=== PATIENT | male | born 1965 | race Caucasian/White ===

== ENCOUNTER 2016-05-02 19:34 | Inpatient (IN) | payer OTHER ==
[~2016-05-02] VITALS: Ht 188 cm; Wt 86.0 kg
[~2016-05-02 19:34] MED LIST: ALBUAER2 INH; CGN5 PO; CLX20 PO; MEDLIST; RISP2TAB22 PO
[2016-05-02] MEDS ORDERED: LEVALBUTEROL 1.25MG/0.5ML NEB INH STA (19:51)
[2016-05-02] MEDS ORDERED: IPRATROPIUM BROMIDE NEB SOLN 0.02% 2.5 ML VIAL INH STA (19:51)
[2016-05-02] MEDS ORDERED: METHYLPREDNISOLONE 125 MG VIAL IV STA (19:51)
[2016-05-02] MEDS ORDERED: ACETAMINOPHEN 500 MG TAB PO STA (19:51)
[2016-05-02] MEDS ORDERED: PIPERACILLIN/TAZOBACTAM 4.5 GM/100ML D5W IV STA (19:51)
[2016-05-02] MEDS ORDERED: SODIUM CHLORIDE 0.9% 1000ML 1,000 ML IV ONE (19:51)
--- NOTE | 2016-05-02 20:05 | EMERGENCY ROOM VISIT NOTE ---
History Report prepared by Gloria: Arlet Godwin Under the Supervision of: Dr. Joe Anderson M.D. First contact with patient: 19:45 Chief Complaint: SHORTNESS OF BREATH Stated Complaint: SOB History of Present Illness The patient is a 50 year old male who presents to the Emergency Room with complaints of constant shortness of breath beginning 3 days prior to arrival. The patient states that he did wear oxygen for 10 years and went off when he became incarcerated 2 years ago. He notes that yesterday he did start wearing oxygen again. He was 78% on room air earlier today. The patient notes that he is experiencing a cough, subjective fever, and chills. He has a history of COPD , emphysema, pneumonia, and DVT. The patient did receive 1 nebulizer treatment today. He denies heart issues or vomiting. 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 A total of 10 systems reviewed and were otherwise negative. Past Medical & Surgical Medical Problems: (1) Emphysema/COPD Family History Patient reports no known family medical history. Social History Smoking Status: Former Smoker Alcohol Use: none Housing Status: other ([facility] Occupation Status: unemployed Current/Historical Medications Scheduled Amoxicillin & Pot Clavulanate (Augmentin 875-125 mg), 1 TAB PO BID Aripiprazole (Abilify), 20 MG PO DAILY Atorvastatin (Lipitor), 20 MG PO DAILY Ciclesonide (Alvesco), 1 PUFF INH BID Diphenhydramine Hcl (Diphenhydramine Hcl), 50 MG PO BID Prednisone Tab (Prednisone), 10 MG PO UD Triamcinolone Acet (Aristocort 0.1%), 1 APPLN TOP BID Scheduled PRN Acetaminophen (Tylenol Extra Strength), 1,000 MG PO Q6H PRN for Fever Albuterol (Ventolin Hfa), 2 PUFFS INH QID PRN for Shortness of Breath Allergies Coded Allergies: No Known Allergies (Unverified , 12/17/09) Physical Exam Vital Signs Date Time Temp Pulse Resp B/P Pulse Ox O2 Delivery O2 Flow Rate FiO2 05/02/16 22:12 102 16 114/68 90 Nasal Cannula 3.0 05/02/16 21:31 37.3 106 20 121/76 93 Nasal Cannula 5.0 05/02/16 20:29 115 05/02/16 20:20 117 20 92 Nasal Cannula 5.0 05/02/16 19:50 37.4 119 20 140/85 78 Room Air 05/02/16 19:50 78 Room Air 05/02/16 19:50 78 Room Air Physical Exam GENERAL: Patient is in no acute distress. HEENT: No acute trauma, normocephalic atraumatic, mucous membranes moist, no nasal congestion, no scleral icterus. NECK: No stridor, no adenopathy, no meningismus, trachea is midline. LUNGS: Bilateral wheezing with diminished breath sounds, shortness of breath with speaking, dry cough noted, breath sounds equal. HEART: Tachycardic with regular rhythm, no murmurs. ABDOMEN: Soft, nontender, bowel sounds positive, no hernias, no peritonitis. EXTREMITIES: No cyanosis or edema, full range of motion of all the joints without pain or difficulty, no signs for acute trauma. NEUROLOGIC: Oriented x 3, no acute motor or sensory deficits, no focal weakness. SKIN: No rash, no jaundice, no diaphoresis. Medical Decision & Procedures ER Provider Diagnostic Interpretation: X ray results and stated below per my interpretation and radiologist interpretation. Other radiology results and stated below per my review and radiologist interpretation: CHEST ONE VIEW PORTABLE CLINICAL HISTORY: Sepsis COMPARISON STUDY: 12/19/2009 FINDINGS: The heart is the upper limits of normal in size. Underlying emphysema is suspected. There is mild interstitial thickening. There is no lobar consolidation. There are no pleural effusions. There is enlargement pulmonary arteries, consistent with either pulmonary arterial hypertension or shunt vascularity.[ IMPRESSION: 1. Suspected emphysema 2. Interstitial thickening 3. Enlargement of the pulmonary arteries, consistent with either pulmonary arterial hypertension or shunt vascularity Electronically signed by: Miguel Arthur M.D. 05/02/2016 8:22 PM Dictated Date/Time: 05/02/2016 8:[address] ANGIOGRAM OF THE CHEST CLINICAL HISTORY: Atypical chest pain. Sepsis. Suspected pulmonary embolism. COMPARISON STUDY: 12/16/2009 TECHNIQUE: Following the IV administration of 116 mL of Optiray-320, CT angiogram of the thorax was performed from the thoracic inlet to the lung bases utilizing the pulmonary embolus protocol. Images are reviewed in the axial, sagittal, and coronal planes. IV contrast was administered without complication. MIP imaging was performed. CT DOSE: 425.16 mGy.cm FINDINGS: There are mildly enlarged right paratracheal, subcarinal, and hilar lymph nodes, similar to the prior examination. There was no evidence of thoracic aortic dilatation. There is mild enlargement of the pulmonary arteries. This remains unchanged the prior study. A shunt cannot be excluded. There are no pulmonary artery filling defects to indicate acute pulmonary embolism. The examination is limited due to respiratory motion artifact. No pleural effusions are visualized. The examination is limited due to respiratory motion artifact. There is bibasal atelectasis. There is pulmonary emphysema. There is a 7 mm right upper lobe pulmonary nodule as visualized in image #220/341. There is an irregular 8 mm opacity as visualized in image #236/341. There are scattered adjacent tree-in-bud opacities. An inflammatory etiology is favored. There is associated right upper lobe bronchial wall thickening. A short-term follow-up study in 3 months is recommended. There are old thoracic vertebral body compression deformities. IMPRESSION: 1. Technically limited study. No central emboli identified 2. Emphysema 3. Mediastinal and hilar lymphadenopathy, similar to December 2009 4. Bronchial wall thickening and scattered right upper lobe nodules, likely inflammatory. A follow-up study in 3 months time is recommended 5. Enlarged pulmonary arteries. A shunt cannot be excluded. Electronically signed by: Miguel Arthur M.D. 05/02/2016 10:09 PM Dictated Date/Time: 05/02/2016 10:00 PM Laboratory Results 05/02/16 19:51 Red Blood Count 5.23, Mean Corpuscular Volume 83.6, Mean Corpuscular Hemoglobin 28.3, Mean Corpuscular Hemoglobin Concent 33.9, Mean Platelet Volume 10.4, Neutrophils (%) (Auto) 87.8, Lymphocytes (%) (Auto) 4.0, Monocytes (%) (Auto) 7.7, Eosinophils (%) (Auto) 0.0, Basophils (%) (Auto) 0.1, Neutrophils # (Auto) 6.74, Lymphocytes # (Auto) 0.31, Monocytes # (Auto) 0.59, Eosinophils # (Auto) 0.00, Basophils # (Auto) 0.01 05/02/16 19:51 Test 05/02/16 19:51 05/02/16 19:53 05/02/16 21:24 White Blood Count 7.68 K/uL (4.8-10.8) Red Blood Count 5.23 M/uL (4.7-6.1) Hemoglobin 14.8 g/dL (14.0-18.0) Hematocrit 43.7 % (42-52) Mean Corpuscular Volume 83.6 fL (80-100) Mean Corpuscular Hemoglobin 28.3 pg (25-34) Mean Corpuscular Hemoglobin Concent 33.9 g/dl (32-36) Platelet Count 141 K/uL (130-400) Mean Platelet Volume 10.4 fL (7.4-10.4) Neutrophils (%) (Auto) 87.8 % Lymphocytes (%) (Auto) 4.0 % Monocytes (%) (Auto) 7.7 % Eosinophils (%) (Auto) 0.0 % Basophils (%) (Auto) 0.1 % Neutrophils # (Auto) 6.74 K/uL (1.4-6.5) Lymphocytes # (Auto) 0.31 K/uL (1.2-3.4) Monocytes # (Auto) 0.59 K/uL (0.11-0.59) Eosinophils # (Auto) 0.00 K/uL (0-0.5) Basophils # (Auto) 0.01 K/uL (0-0.2) RDW Standard Deviation 41.3 fL (36.4-46.3) RDW Coefficient of Variation 13.6 % (11.5-14.5) Immature Granulocyte % (Auto) 0.4 % Immature Granulocyte # (Auto) 0.03 K/uL (0.00-0.02) Prothrombin Time 10.7 SECONDS (9.0-12.0) Prothromb Time International Ratio 1.0 (0.9-1.1) Activated Partial Thromboplast Time 30.0 SECONDS (21.0-31.0) Partial Thromboplastin Ratio 1.2 Anion Gap 9.0 mmol/L (3-11) Est Creatinine Clear Calc Drug Dose 186.9 ml/min Estimated GFR () 140.8 Estimated GFR (Non- 121.5 BUN/Creatinine Ratio 20.2 (10-20) Calcium Level 8.8 mg/dl (8.5-10.1) Total Bilirubin 0.4 mg/dl (0.2-1) Aspartate Amino Transf (AST/SGOT) 27 U/L (15-37) Alanine Aminotransferase (ALT/SGPT) 28 U/L (12-78) Alkaline Phosphatase 90 U/L (45-117) Total Protein 7.2 gm/dl (6.4-8.2) Albumin 3.4 gm/dl (3.4-5.0) Globulin 3.8 gm/dl (2.5-4.0) Albumin/Globulin Ratio 0.9 (0.9-2) Bedside Lactic Acid Venous 0.62 mmol/L (0.90-1.70) Laboratory results reviewed by me. Medications Administered Medications (Trade) Dose Ordered Sig/Aron Route Start Time Stop Time Status Last Admin Dose Admin Sodium Chloride (Nss 1000ml) 1,000 ml @ 999 mls/hr Q1H1M ONCE IV 05/02/16 19:51 05/02/16 20:51 DC 05/02/16 19:51 999 MLS/HR Piperacillin Sod/ Tazobactam Sod (Zosyn Iv) 4.5 gm ONE STAT IV 05/02/16 19:51 05/02/16 19:55 DC 05/02/16 20:58 4.5 GM Levalbuterol (Xopenex 1.25MG/ 0.5ML Neb) 1.25 mg NOW STAT INH 05/02/16 19:51 05/02/16 19:55 DC 05/02/16 20:20 1.25 MG Ipratropium [place] (Atrovent 0.02% 0.5MG/2.5ML Neb) 0.5 mg NOW STAT INH 05/02/16 19:51 05/02/16 19:55 DC 05/02/16 20:20 0.5 MG Methylprednisolone Sodium Succinate (Solu-Medrol IV) 60 mg NOW STAT IV 05/02/16 19:51 05/02/16 19:55 DC 05/02/16 20:57 60 MG Acetaminophen (Tylenol Tab) 1,000 mg NOW STAT PO 05/02/16 19:51 05/02/16 19:55 DC 05/02/16 20:57 1,000 MG ECG Indication: SOB/dyspnea Rate (beats per minute): 132 Rhythm: sinus tachycardia Findings: no acute ischemic change, no ectopy, other (significant artifact present, no obvious acute ischemia) ED Course 1945: The patient was evaluated in room B7. A complete history and physical exam was performed. 1950: Tylenol Tab 1,000 mg Po, Solu-Medrol IV 60 mg IV, Atrovent 0.02% 0.5 MG/ 2.5 ML Neb 0.5 mg INH, Xopenex 1.25 mg/ 0.5 ml Neb 1.25 mg INH, Zosyn Iv 4.5 gm IV, Sodium Chloride 1,000 ml @ 999 mls/hr IV. 2202: Discussed the patient's case with Dr. Solares. The patient will be evaluated for further management. 2213: I spoke with the patient about the plan for hospitalization. Medical Decision The patient is a 50 year old male who presents to the ED with complaints of shortness of breath. Differential diagnoses considered include exacerbation of COPD, pneumonia, bronchitis, CHF, PE, pneumothorax, failed outpatient treatment. There is no leukocytosis or concerning anemia. No significant electrolyte abnormality, kidney failure or hepatitis. Influenza testing is still pending. Chest film shows some chronic change, no pneumonia, pneumothorax or CHF. EKG shows a sinus tachycardia, no acute ischemia. Blood cultures are pending. Lactic acid level is not elevated making severe sepsis less likely. Chest CT shows no pneumonia or PE, emphysema was seen. There was some hilar adenopathy noted on the CT. The patient received a Xopenex Atrovent neb, he was given IV Solu-Medrol and IV Zosyn. The patient received IV saline for hydration, he was given a dose of oral Tylenol. The patient appears to have an acute bronchitis with an exacerbation of COPD. He seems to be doing better since treatment here in the ED. His heart rate has decreased, he is more comfortable. The patient has failed outpatient treatment, admission/observation is warranted. I spoke to the patient and with the case management team. The on- call hospitalist was consulted. Consults Time Called: 2200 Consulting Physician: Dr. Solares - [facility] [place] Returned Call: [phone] Discussed the patient's case. The patient will be evaluated for further management. Impression Primary Impression: Hypoxia Additional Impressions: Acute bronchitis COPD exacerbation Scribe Attestation The scribe's documentation has been prepared under my direction and personally reviewed by me in its entirety. I confirm that the note above accurately reflects all work, treatment, procedures, and medical decision making performed by me. Departure Information Dispostion Being Evaluated By Hospitalist Referrals Jarrett OLVERA (PCP) Problem Qualifiers
[2016-05-02 20:07] LABS: BASO % 0.1 %; BASO ABS # 0.01 K/uL (0-0.2); COMPLETE YES; HEMATOCRIT 43.7 % (42-52); IG% 0.4 %; LYMPH ABS # 0.31 K/uL (1.2-3.4); MEAN CELL VOLUME 83.6 fL (80-100); MEAN CORPUSCULAR HEMOGLOBIN 28.3 pg (25-34); MEAN CORPUSCULAR HGB CONC 33.9 g/dl (32-36); MEAN PLATELET VOLUME 10.4 fL (7.4-10.4); MONO % 7.7 %; NEUT % 87.8 %; PLATELET COUNT 141 K/uL (130-400); RED BLOOD COUNT 5.23 M/uL (4.7-6.1); WHITE BLOOD COUNT 7.68 K/uL (4.8-10.8)
[2016-05-02] MEDS ORDERED: DIPH1CAP34 PO (20:17)
[2016-05-02] MEDS ORDERED: ATOR-22 PO (20:17)
[2016-05-02] MEDS ORDERED: CICL160A INH (20:17)
[2016-05-02] MEDS ORDERED: ARIP20TA4 PO (20:17)
[2016-05-02] MEDS ORDERED: AMOX875T PO (20:17)
[2016-05-02 20:18] LABS: PARTIAL THROMBOPLASTIN RATIO 1.2; PROTHROMBIN TIME (PATIENT) 10.7 SECONDS (9.0-12.0)
[2016-05-02 20:20] VITALS: PULSE 117; O2SAT 92
[2016-05-02] MEDS ORDERED: PRVHFAIN INH (20:21)
[2016-05-02] MEDS ORDERED: ACET-1257 PO (20:21)
[2016-05-02] MEDS ORDERED: TRMCR130WC TOP (20:22)
--- NOTE | 2016-05-02 20:23 | DIAGNOSTIC IMAGING REPORT ---
CHEST ONE VIEW PORTABLE CLINICAL HISTORY: Sepsis COMPARISON STUDY: 12/19/2009 FINDINGS: The heart is the upper limits of normal in size. Underlying emphysema is suspected. There is mild interstitial thickening. There is no lobar consolidation. There are no pleural effusions. There is enlargement pulmonary arteries, consistent with either pulmonary arterial hypertension or shunt vascularity.[ IMPRESSION: 1. Suspected emphysema 2. Interstitial thickening 3. Enlargement of the pulmonary arteries, consistent with either pulmonary arterial hypertension or shunt vascularity Electronically signed by: Miguel Arthur M.D. 05/02/2016 8:22 PM Dictated Date/Time: 05/02/2016 8:20 PM
[2016-05-02] MEDS ORDERED: PRED10TA PO (20:27)
[2016-05-02 20:38] LABS: BUN/CREATININE RATIO 20.2 (10-20); CALCIUM 8.8 mg/dl (8.5-10.1); CREATININE 0.55 mg/dl (0.60-1.40); POTASSIUM 4.7 mmol/L (3.5-5.1)
[2016-05-02 20:41] LABS: ALB/GLOB RATIO 0.9 (0.9-2)
[2016-05-02] MEDS ORDERED: OPTIRAY 320 IV PRN (20:45)
--- NOTE | 2016-05-02 22:11 | DIAGNOSTIC IMAGING REPORT ---
CT ANGIOGRAM OF THE CHEST CLINICAL HISTORY: Atypical chest pain. Sepsis. Suspected pulmonary embolism. COMPARISON STUDY: 12/16/2009 TECHNIQUE: Following the IV administration of 116 mL of Optiray-320, CT angiogram of the thorax was performed from the thoracic inlet to the lung bases utilizing the pulmonary embolus protocol. Images are reviewed in the axial, sagittal, and coronal planes. IV contrast was administered without complication. MIP imaging was performed. CT DOSE: 425.16 mGy.cm FINDINGS: There are mildly enlarged right paratracheal, subcarinal, and hilar lymph nodes, similar to the prior examination. There was no evidence of thoracic aortic dilatation. There is mild enlargement of the pulmonary arteries. This remains unchanged the prior study. A shunt cannot be excluded. There are no pulmonary artery filling defects to indicate acute pulmonary embolism. The examination is limited due to respiratory motion artifact. No pleural effusions are visualized. The examination is limited due to respiratory motion artifact. There is bibasal atelectasis. There is pulmonary emphysema. There is a 7 mm right upper lobe pulmonary nodule as visualized in image #220/341. There is an irregular 8 mm opacity as visualized in image #236/341. There are scattered adjacent tree-in-bud opacities. An inflammatory etiology is favored. There is associated right upper lobe bronchial wall thickening. A short-term follow-up study in 3 months is recommended. There are old thoracic vertebral body compression deformities. IMPRESSION: 1. Technically limited study. No central emboli identified 2. Emphysema 3. Mediastinal and hilar lymphadenopathy, similar to December 2009 4. Bronchial wall thickening and scattered right upper lobe nodules, likely inflammatory. A follow-up study in 3 months time is recommended 5. Enlarged pulmonary arteries. A shunt cannot be excluded. Electronically signed by: Miguel Arthur M.D. 05/02/2016 10:09 PM Dictated Date/Time: 05/02/2016 10:00 PM
[2016-05-02] MEDS ORDERED: MAGNESIUM HYDROXIDE SUSP 30 ML UDC PO PRN (22:45)
[2016-05-02] MEDS ORDERED: POLYETHYLENE (MIRALAX) 17 GM PACK PO PRN (22:45)
[2016-05-02] MEDS ORDERED: ALBUTEROL 0.083% NEBU SOLN 3 ML VIAL INH PRN (22:45)
[2016-05-02] MEDS ORDERED: ACETAMINOPHEN 325 MG TAB PO PRN (22:45)
[2016-05-02] MEDS ORDERED: MoRPHine SULFATE 2 MG/ML CARP IV PRN (22:45)
[2016-05-02] MEDS ORDERED: ALUMINUM/MAGNESIUM/SIMETH (MAALOX MAX) 30 ML UDC PO PRN (22:45)
[2016-05-02] MEDS ORDERED: ZOLPIDEM TARTRATE 5 MG TAB PO PRN (22:45)
[2016-05-02] MEDS ORDERED: ONDANSETRON INJ 2 MG/ML 2 ML VIAL IV PRN (22:45)
[2016-05-02 22:51] LABS: INFLUENZA B PCR Neg for Influ B (NEG)
[2016-05-02 22:54] LABS: INFLUENZA A PCR POS for Influ A (NEG)
--- NOTE | 2016-05-02 23:06 | History and Physical ---
History & Physical Date & Time of Service: May 02, 2016 at 22:41 Chief Complaint: SOB Primary Care Physician: Jarrett OLVERA History of Present Illness Source: patient 50 y/o M w/Hx COPD, Major depression. Pt presents from a local [facility] where he was being treated for bronchitis and COPD with Augmentin and Prednisone. His symptoms have worsened despite treatment and he presented to the ER markedly dyspneic and hypoxic. He has a chronic productive cough which has worsened in addition to reported fevers. He denies significant CP, N/V, dysuria. A CT chest was obtained which did not reveal a definitive pneumonia. An Influenza test came back (+). The pt will be admitted for COPD exacerbation likely precipitated by Influenza Past Medical/Surgical History Medical Problems: (1) Emphysema/COPD Status: Chronic 2) Major depresswion 3) HPL 4) History of DVT Family History Patient reports no known family medical history. Social History Smoking Status: Former Smoker Occupational Status: unemployed Immunizations History of Influenza Vaccine: Unknown History of Tetanus Vaccine?: Unknown History of Pneumococcal: Unknown History of Hepatitis B Vaccine: Unknown Allergies Coded Allergies: No Known Allergies (Unverified , 12/17/09) Home Medications Scheduled Amoxicillin & Pot Clavulanate (Augmentin 875-125 mg), 1 TAB PO BID Aripiprazole (Abilify), 20 MG PO DAILY Atorvastatin (Lipitor), 20 MG PO DAILY Ciclesonide (Alvesco), 1 PUFF INH BID Diphenhydramine Hcl (Diphenhydramine Hcl), 50 MG PO BID Prednisone Tab (Prednisone), 10 MG PO UD Triamcinolone Acet (Aristocort 0.1%), 1 APPLN TOP BID Scheduled PRN Acetaminophen (Tylenol Extra Strength), 1,000 MG PO Q6H PRN for Fever Albuterol (Ventolin Hfa), 2 PUFFS INH QID PRN for Shortness of Breath Review of Systems Constitutional: + chills, + fever, + sweats Eyes: No eye pain, No worsening of vision ENT: No hearing loss, No nasal symptoms, No unusual epistaxis Respiratory: + cough, + dyspnea at rest, + dyspnea on exertion, + shortness of breath, + sputum, + wheezing Cardiovascular: No PND, No chest pain, No orthopnea Abdomen: No nausea, No pain, No vomiting Musculoskeletal: No joint pain, No muscle pain Genitourinary - Male: No dysuria, No hematuria Neurologic: No memory loss, No paralysis Psychiatric: + depression symptoms Endocrine: No fatigue Hematologic / Lymphatic: No abnormal bleeding/bruising Integumentary: No rash Allergic / Immunologic: No environmental allergies Physical Exam Vital Signs Date Time Temp Pulse Resp B/P Pulse Ox O2 Delivery O2 Flow Rate FiO2 05/02/16 22:12 102 16 114/68 90 Nasal Cannula 3.0 05/02/16 21:31 37.3 106 20 121/76 93 Nasal Cannula 5.0 05/02/16 20:29 115 05/02/16 20:20 117 20 92 Nasal Cannula 5.0 05/02/16 19:50 37.4 119 20 140/85 78 Room Air 05/02/16 19:50 78 Room Air 05/02/16 19:50 78 Room Air General Appearance: WD/WN, no apparent distress Head: normocephalic Eyes: normal inspection, EOMI ENT: normal ENT inspection, pharynx normal Neck: supple, no JVD Cardiovascular: regular rate, rhythm, no edema, no gallop Abdomen/GI: normal bowel sounds, non tender, soft Back: normal inspection, no CVA tenderness, no muscle spasm, normal range of motion Extremities/Musculoskelatal: normal inspection, no calf tenderness 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, no motor/sensory deficits, alert, normal mood/affect, normal reflexes, oriented x 3 Skin: normal color, warm/dry, no rash Diagnostics Laboratory Results Results Past 24 Hours Test 05/02/16 19:51 05/02/16 19:53 05/02/16 21:24 Range/Units White Blood Count 7.68 4.8-10.8 K/uL Red Blood Count 5.23 4.7-6.1 M/uL Hemoglobin 14.8 14.0-18.0 g/dL Hematocrit 43.7 42-52 % Mean Corpuscular Volume 83.6 80-100 fL Mean Corpuscular Hemoglobin 28.3 25-34 pg Mean Corpuscular Hemoglobin Concent 33.9 32-36 g/dl Platelet Count 141 130-400 K/uL Mean Platelet Volume 10.4 7.4-10.4 fL Neutrophils (%) (Auto) 87.8 % Lymphocytes (%) (Auto) 4.0 % Monocytes (%) (Auto) 7.7 % Eosinophils (%) (Auto) 0.0 % Basophils (%) (Auto) 0.1 % Neutrophils # (Auto) 6.74 1.4-6.5 K/uL Lymphocytes # (Auto) 0.31 1.2-3.4 K/uL Monocytes # (Auto) 0.59 0.11-0.59 K/uL Eosinophils # (Auto) 0.00 0-0.5 K/uL Basophils # (Auto) 0.01 0-0.2 K/uL RDW Standard Deviation 41.3 36.4-46.3 fL RDW Coefficient of Variation 13.6 11.5-14.5 % Immature Granulocyte % (Auto) 0.4 % Immature Granulocyte # (Auto) 0.03 0.00-0.02 K/uL Prothrombin Time 10.7 9.0-12.0 SECONDS Prothromb Time International Ratio 1.0 0.9-1.1 Activated Partial Thromboplast Time 30.0 21.0-31.0 SECONDS Partial Thromboplastin Ratio 1.2 Sodium Level 134 136-145 mmol/L Potassium Level 4.7 3.5-5.1 mmol/L Chloride Level 95 98-107 mmol/L Carbon Dioxide Level 30 21-32 mmol/L Anion Gap 9.0 3-11 mmol/L Blood Urea Nitrogen 11 7-18 mg/dl Creatinine 0.55 0.60-1.40 mg/dl Est Creatinine Clear Calc Drug Dose 186.9 ml/min Estimated GFR () 140.8 Estimated GFR (Non- 121.5 BUN/Creatinine Ratio 20.2 10-20 Random Glucose 158 70-99 mg/dl Calcium Level 8.8 8.5-10.1 mg/dl Total Bilirubin 0.4 0.2-1 mg/dl Aspartate Amino Transf (AST/SGOT) 27 15-37 U/L Alanine Aminotransferase (ALT/SGPT) 28 12-78 U/L Alkaline Phosphatase 90 45-117 U/L Total Protein 7.2 6.4-8.2 gm/dl Albumin 3.4 3.4-5.0 gm/dl Globulin 3.8 2.5-4.0 gm/dl Albumin/Globulin Ratio 0.9 0.9-2 Bedside Lactic Acid Venous 0.62 0.90-1.70 mmol/L Microbiology Results 05/02/16 Blood Culture, Received Pending 05/02/16 Blood Culture, Received Pending Diagnostic Radiology CT abdomen 1. Technically limited study. No central emboli identified. 2. Emphysema. 3. Mediastinal and hilar lymphadenopathy, similar to December 2009. 4. Bronchial wall thickening and scattered right upper lobe nodules, likely inflammatory. A follow-up study in 3 months time is recommended. 5. Enlarged pulmonary arteries. A shunt cannot be excluded. Impression Assessment and Plan 50 y/o M w/Hx COPD, Major depression. Pt presents from a local [facility] where he was being treated for bronchitis and COPD with Augmentin and Prednisone. His symptoms have worsened despite treatment and he presented to the ER markedly dyspneic and hypoxic. He has a chronic productive cough which has worsened in addition to reported fevers. He denies significant CP, N/V, dysuria. A CT chest was obtained which did not reveal a definitive pneumonia. An Influenza test came back (+). The pt will be admitted for COPD exacerbation likely precipitated by Influenza 1) COPD exacerbation - Admitted to telemetry - 02 protocol, Duonebs/Albuterol, Solumedol, Levaquin 2) Influenza A (+) - pt is not in the window for Tamiflu treatment - supportive measures as above 3) Major depression - cont Abilify - the chest CT raises concerns for Pulmonary hypertension - an inpt consult maybe merited if he cannot obtain f/u due to his social circumstances Full code - Heparin prophylaxis Total time for this admit including review of labs and records, imaging and med rec - discussion with pt and ER attending 36 min Level of Care Telemetry Resuscitation Status FULL RESUSCITATION VTE Prophylaxis VTE Risk Assessment Done? Y/N: Yes Risk Level: Low Given or contraindicated: Enoxaparin (Lovenox)SQ
[2016-05-02 23:35] VITALS: BP 112/73; PULSE 87; TEMP 36.6; O2SAT 98; Ht 188 cm; Wt 86.0 kg
[2016-05-03] VITALS (12 sets, daily range): BP systolic 128–181; BP diastolic 72–98; PULSE 91–118; TEMP 36.5–36.8; O2SAT 86–97
[2016-05-03] MEDS: LEVOFLOXACIN / D5W 500 MG in PREMIXED IN D5W 100 ML IV SCH (00:30)
[2016-05-03] MEDS: METHYLPREDNISOLONE IV 60 MG in SYRINGE 0 ML IV SCH ×4 (01:56→20:11)
[2016-05-03] MEDS: ALBUT/IPRATROP 3MG/0.5MG NEB 3 ML VIAL INH SCH ×4 (02:58→19:40)
[2016-05-03] MEDS ORDERED: INFLUENZA VIRUS QUAD VACCINE 0.5 ML SYR IM. ONE (08:00)
[2016-05-03] MEDS ORDERED: PNEUMOCOCCAL ADMINISTRATION CHARGE ONE (08:00)
[2016-05-03] MEDS ORDERED: INFLUENZA ADMINISTRATION CHARGE ONE (08:00)
[2016-05-03] MEDS ORDERED: PNEUMOCOCCAL POLYSACCHARIDES 25 MCG/0.5 ML VIAL/SYR IM. ONE (08:00)
[2016-05-03] MEDS: TRIAMCINOLONE ACET 0.1% CR 15 GM TUBE EXT SCH ×2 (08:36→20:13)
[2016-05-03] MEDS: ATORVASTATIN 20 MG TAB PO SCH (08:38)
[2016-05-03] MEDS: ARIPIprazole TAB 10 MG TAB PO SCH (08:38)
[2016-05-03] MEDS: ENOXAPARIN 40 MG/0.4 ML SYR SC SCH (08:39)
[2016-05-03] MEDS: OSELTAMIVIR PHOSPHATE 75 MG CAP PO SCH ×2 (09:02→20:11)
[2016-05-03] MEDS ORDERED: NURSING VERBAL MED ORDER ONE (11:15)
[2016-05-03] MEDS ORDERED: NICOTINE 7 MG/24 HR TDSY TD ONE (11:30)
--- NOTE | 2016-05-03 12:21 | Progress Note ---
Subjective Date of Service: May 03, 2016. Subjective Pt evaluation today including: conversation w/ patient, physical exam, chart review, lab review, review of studies, review of inpatient medication list Voiding: no voiding problems Feeding a little better, however still cough and wheezing, deny fever and chills, reported tobacco abuse, still take 10 cigarettes a day, Problem List Medical Problems: (1) Acute bronchitis Status: Acute (2) COPD exacerbation Status: Acute (3) Hypoxia Status: Acute Review of Systems Constitutional: + fatigue, + weakness, No chills, No fever, No problem reported , No sweats, No weight loss Eyes: No diplopia, No discharge, No eye pain, No redness, No worsening of vision ENT: No dental problems, No hearing loss, No nasal symptoms, No sore throat, No tinnitus, No trouble swallowing, No unusual epistaxis Respiratory: + cough, + shortness of breath, + sputum, + wheezing, No dyspnea at rest, No dyspnea on exertion, No hemoptysis Cardiac: No PND, No chest pain, No claudication, No edema, No orthopnea, No palpitations Abdomen: No constipation, No diarrhea, No nausea, No pain, No vomiting Musculoskeletal: No calf pain, No joint pain, No muscle pain, No swelling Male : No dysuria, No hematuria, No incontinence, No nocturia more than once/ night, No slowing stream, No urinary frequency Neurologic: No balance problems, No memory loss, No numbness/tingling, No paralysis, No vertigo, No weakness Psychiatric: No anhedonism, No anxiety, No depression symptoms, No insomnia, No substance abuse Heme: No abnormal bleeding/bruising, No clotting problems, No night sweats, No swollen lymph nodes Endo: No excessive thirst, No excessive urination, No fatigue Skin: No bleeding, No color change, No itch, No new/changing skin lesions, No rash Objective Vital Signs Date Time Temp Pulse Resp B/P Pulse Ox O2 Delivery O2 Flow Rate FiO2 05/03/16 12:00 94 Nasal Cannula 4.0 05/03/16 08:00 92 Nasal Cannula 4.0 05/03/16 07:19 36.5 101 20 136/81 89 Nasal Cannula 4.0 05/03/16 07:05 91 20 95 Nasal Cannula 4.0 05/03/16 04:00 93 Nasal Cannula 4.0 05/03/16 03:38 36.8 95 18 128/77 90 05/03/16 02:58 95 20 92 Nasal Cannula 4.0 05/02/16 23:35 36.6 87 20 112/73 98 Nasal Cannula 5.0 05/02/16 23:06 36.8 91 18 118/66 93 Nasal Cannula 4.0 05/02/16 22:12 102 16 114/68 90 Nasal Cannula 3.0 05/02/16 21:31 37.3 106 20 121/76 93 Nasal Cannula 5.0 05/02/16 20:29 115 05/02/16 20:20 117 20 92 Nasal Cannula 5.0 05/02/16 19:50 37.4 119 20 140/85 78 Room Air 05/02/16 19:50 78 Room Air 05/02/16 19:50 78 Room Air Physical Exam General Appearance: WD/WN, no apparent distress Eyes: normal inspection, PERRL, EOMI, sclerae normal ENT: normal ENT inspection, hearing grossly normal, pharynx normal Neck: supple, no adenopathy, thyroid normal, no JVD, no carotid bruits, trachea midline Respiratory/Chest: chest non-tender, no respiratory distress, no accessory muscle use, + decreased breath sounds, + wheezing Cardiovascular: regular rate, rhythm, no edema, no gallop, no JVD, no murmur Abdomen: normal bowel sounds, non tender, soft, no organomegaly, no pulsatile mass Extremities: normal range of motion, non-tender, normal inspection, no pedal edema, no calf tenderness, normal capillary refill, pelvis stable 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, no motor/sensory deficits, alert, normal mood/affect, oriented x 3 Skin: normal color, warm/dry, no rash Lymphatic: no adenopathy Laboratory Results Last 24 Hours Test 05/02/16 19:51 05/02/16 19:53 05/02/16 21:24 White Blood Count 7.68 K/uL Red Blood Count 5.23 M/uL Hemoglobin 14.8 g/dL Hematocrit 43.7 % Mean Corpuscular Volume 83.6 fL Mean Corpuscular Hemoglobin 28.3 pg Mean Corpuscular Hemoglobin Concent 33.9 g/dl Platelet Count 141 K/uL Mean Platelet Volume 10.4 fL Neutrophils (%) (Auto) 87.8 % Lymphocytes (%) (Auto) 4.0 % Monocytes (%) (Auto) 7.7 % Eosinophils (%) (Auto) 0.0 % Basophils (%) (Auto) 0.1 % Neutrophils # (Auto) 6.74 K/uL Lymphocytes # (Auto) 0.31 K/uL Monocytes # (Auto) 0.59 K/uL Eosinophils # (Auto) 0.00 K/uL Basophils # (Auto) 0.01 K/uL RDW Standard Deviation 41.3 fL RDW Coefficient of Variation 13.6 % Immature Granulocyte % (Auto) 0.4 % Immature Granulocyte # (Auto) 0.03 K/uL Prothrombin Time 10.7 SECONDS Prothromb Time International Ratio 1.0 Activated Partial Thromboplast Time 30.0 SECONDS Partial Thromboplastin Ratio 1.2 Sodium Level 134 mmol/L Potassium Level 4.7 mmol/L Chloride Level 95 mmol/L Carbon Dioxide Level 30 mmol/L Anion Gap 9.0 mmol/L Blood Urea Nitrogen 11 mg/dl Creatinine 0.55 mg/dl Est Creatinine Clear Calc Drug Dose 186.9 ml/min Estimated GFR () 140.8 Estimated GFR (Non- 121.5 BUN/Creatinine Ratio 20.2 Random Glucose 158 mg/dl Calcium Level 8.8 mg/dl Total Bilirubin 0.4 mg/dl Aspartate Amino Transf (AST/SGOT) 27 U/L Alanine Aminotransferase (ALT/SGPT) 28 U/L Alkaline Phosphatase 90 U/L Troponin I < 0.015 ng/ml Total Protein 7.2 gm/dl Albumin 3.4 gm/dl Globulin 3.8 gm/dl Albumin/Globulin Ratio 0.9 Bedside Lactic Acid Venous 0.62 mmol/L Influenza Type A (RT-PCR) POS for Influ A Influenza Type B (RT-PCR) Neg for Influ B Assessment and Plan 50 y/o M w/Hx COPD, Major depression admitted to hospital on 05/02/2016 because of COPD exacerbation and influenza A infection Pt presents from a local [facility] where he was being treated for bronchitis and COPD with Augmentin and Prednisone. His symptoms have worsened despite treatment and he presented to the ER markedly dyspneic and hypoxic. He has a chronic productive cough which has worsened in addition to reported fevers. A CT chest was obtained which did not reveal a definitive pneumonia. An Influenza test came back (+). COPD exacerbation Tobacco abuse disorder Influenza A (+) Major depression - cont Abilify Plan: Med surge , continue 02 protocol, Duonebs/Albuterol, Solumedol, Levaquin, nicotine patch because of smoking, consult quit smoking, Full code - Heparin prophylaxis Continued [facility] stay due to: multiple IV medications needed Discharge planning: home
[2016-05-04] VITALS (9 sets, daily range): BP systolic 132–144; BP diastolic 56–89; PULSE 90–117; TEMP 36.4–36.7; O2SAT 91–97
[2016-05-04] MEDS: LEVOFLOXACIN / D5W 500 MG in PREMIXED IN D5W 100 ML IV SCH (00:05)
[2016-05-04] MEDS: ALBUT/IPRATROP 3MG/0.5MG NEB 3 ML VIAL INH SCH ×4 (01:40→19:00)
[2016-05-04] MEDS: METHYLPREDNISOLONE IV 60 MG in SYRINGE 0 ML IV SCH ×4 (02:01→20:03)
[2016-05-04 06:50] LABS: BUN/CREATININE RATIO 20.8 (10-20); CALCIUM 8.4 mg/dl (8.5-10.1); CREATININE 0.53 mg/dl (0.60-1.40); MAGNESIUM 2.1 mg/dl (1.8-2.4); POTASSIUM 4.8 mmol/L (3.5-5.1)
[2016-05-04 06:54] LABS: BASO % 0.1 %; BASO ABS # 0.01 K/uL (0-0.2); COMPLETE YES; IG% 0.8 %; LYMPH % 5.6 %; LYMPH ABS # 0.44 K/uL (1.2-3.4); MEAN CELL VOLUME 89.8 fL (80-100); MEAN CORPUSCULAR HEMOGLOBIN 27.9 pg (25-34); MEAN CORPUSCULAR HGB CONC 31.1 g/dl (32-36); MEAN PLATELET VOLUME 10.5 fL (7.4-10.4); MONO % 6.3 %; NEUT % 87.2 %; PLATELET COUNT 149 K/uL (130-400); RED BLOOD COUNT 5.01 M/uL (4.7-6.1); WHITE BLOOD COUNT 7.79 K/uL (4.8-10.8)
[2016-05-04] MEDS: TRIAMCINOLONE ACET 0.1% CR 15 GM TUBE EXT SCH ×2 (08:40→20:03)
[2016-05-04] MEDS: OSELTAMIVIR PHOSPHATE 75 MG CAP PO SCH ×2 (08:41→20:04)
[2016-05-04] MEDS: ARIPIprazole TAB 10 MG TAB PO SCH (08:41)
[2016-05-04] MEDS: ATORVASTATIN 20 MG TAB PO SCH (08:41)
[2016-05-04] MEDS: NICOTINE 7 MG/24 HR TDSY TD SCH (08:42)
[2016-05-04] MEDS: ENOXAPARIN 40 MG/0.4 ML SYR SC SCH (08:42)
[2016-05-04] MEDS ORDERED: NURSING VERBAL MED ORDER ONE (09:30)
--- NOTE | 2016-05-04 09:54 | Progress Note ---
Subjective Date of Service: May 04, 2016. Subjective Pt evaluation today including: conversation w/ patient, physical exam, chart review, lab review, review of studies, review of inpatient medication list Still has cough, wheezing, was need to Venturi mask for oxygen because he feel nasal cannula is to try, no fever and chill Problem List Medical Problems: (1) Acute bronchitis Status: Acute (2) COPD exacerbation Status: Acute (3) Hypoxia Status: Acute Review of Systems Constitutional: + fatigue, + weakness, No chills, No fever, No problem reported , No sweats, No weight loss Eyes: No diplopia, No discharge, No eye pain, No redness, No worsening of vision ENT: + tinnitus, No dental problems, No hearing loss, No nasal symptoms, No sore throat, No trouble swallowing, No unusual epistaxis Respiratory: + see HPI, + shortness of breath, No cough, No dyspnea at rest, No dyspnea on exertion, No hemoptysis, No sputum, No wheezing Cardiac: No PND, No chest pain, No claudication, No edema, No orthopnea, No palpitations Abdomen: No constipation, No diarrhea, No nausea, No pain, No vomiting Musculoskeletal: No calf pain, No joint pain, No muscle pain, No swelling Male : No dysuria, No hematuria, No incontinence, No nocturia more than once/ night, No slowing stream, No urinary frequency Neurologic: No balance problems, No memory loss, No numbness/tingling, No paralysis, No vertigo, No weakness Psychiatric: No anhedonism, No anxiety, No depression symptoms, No insomnia, No substance abuse Heme: No abnormal bleeding/bruising, No clotting problems, No night sweats, No swollen lymph nodes Endo: No excessive thirst, No excessive urination, No fatigue Skin: No bleeding, No color change, No itch, No new/changing skin lesions, No rash Objective Vital Signs Date Time Temp Pulse Resp B/P Pulse Ox O2 Delivery O2 Flow Rate FiO2 05/04/16 07:24 36.7 90 18 132/56 93 Venturi Mask 50 05/04/16 07:07 90 20 93 Venturi Mask 50 05/04/16 01:40 102 20 97 Venturi Mask 50 05/04/16 00:20 36.5 103 18 144/89 92 Venturi Mask 5.0 05/04/16 00:00 92 Venturi Mask 15.0 50 05/03/16 19:40 115 20 97 Venturi Mask 50 05/03/16 15:51 36.6 117 20 181/98 89 Nasal Cannula 4.0 05/03/16 15:45 89 Nasal Cannula 4.0 Mask 05/03/16 14:42 36.8 95 17 91 4.0 05/03/16 14:20 118 20 86 Nasal Cannula 4.0 05/03/16 12:00 94 Nasal Cannula 4.0 05/03/16 12:00 36.8 115 20 130/72 93 Nasal Cannula 4.0 Physical Exam General Appearance: WD/WN, no apparent distress Eyes: normal inspection, PERRL, EOMI, sclerae normal ENT: normal ENT inspection, hearing grossly normal, pharynx normal Neck: supple, no adenopathy, thyroid normal, no JVD, no carotid bruits, trachea midline Respiratory/Chest: chest non-tender, no respiratory distress, no accessory muscle use, + decreased breath sounds (significant), + wheezing (the upper lungs ) Cardiovascular: regular rate, rhythm, no edema, no gallop, no JVD, no murmur Abdomen: normal bowel sounds, non tender, soft, no organomegaly, no pulsatile mass Extremities: normal range of motion, non-tender, normal inspection, no pedal edema, no calf tenderness, normal capillary refill, pelvis stable 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, no motor/sensory deficits, alert, normal mood/affect, oriented x 3 Skin: normal color, warm/dry, no rash Lymphatic: no adenopathy Laboratory Results Last 24 Hours Test 05/04/16 05:18 White Blood Count 7.79 K/uL Red Blood Count 5.01 M/uL Hemoglobin 14.0 g/dL Hematocrit 45.0 % Mean Corpuscular Volume 89.8 fL Mean Corpuscular Hemoglobin 27.9 pg Mean Corpuscular Hemoglobin Concent 31.1 g/dl Platelet Count 149 K/uL Mean Platelet Volume 10.5 fL Neutrophils (%) (Auto) 87.2 % Lymphocytes (%) (Auto) 5.6 % Monocytes (%) (Auto) 6.3 % Eosinophils (%) (Auto) 0.0 % Basophils (%) (Auto) 0.1 % Neutrophils # (Auto) 6.79 K/uL Lymphocytes # (Auto) 0.44 K/uL Monocytes # (Auto) 0.49 K/uL Eosinophils # (Auto) 0.00 K/uL Basophils # (Auto) 0.01 K/uL RDW Standard Deviation 46.0 fL RDW Coefficient of Variation 14.0 % Immature Granulocyte % (Auto) 0.8 % Immature Granulocyte # (Auto) 0.06 K/uL Sodium Level 138 mmol/L Potassium Level 4.8 mmol/L Chloride Level 97 mmol/L Carbon Dioxide Level 40 mmol/L Anion Gap 1.0 mmol/L Blood Urea Nitrogen 11 mg/dl Creatinine 0.53 mg/dl Est Creatinine Clear Calc Drug Dose 191.8 ml/min Estimated GFR () 142.0 Estimated GFR (Non- 122.5 BUN/Creatinine Ratio 20.8 Random Glucose 144 mg/dl Calcium Level 8.4 mg/dl Magnesium Level 2.1 mg/dl Assessment and Plan 50 y/o M w/Hx COPD, Major depression admitted to hospital on 05/02/2016 because of COPD exacerbation and influenza A infection Pt presents from a local [facility] where he was being treated for bronchitis and COPD with Augmentin and Prednisone. His symptoms have worsened despite treatment and he presented to the ER markedly dyspneic and hypoxic. He has a chronic productive cough which has worsened in addition to reported fevers. A CT chest was obtained which did not reveal a definitive pneumonia. An Influenza test came back (+). Stable but the no obvious improving COPD exacerbation Tobacco abuse disorder Influenza A (+) The CT is reported : Bronchial wall thickening and scattered right upper lobe nodules, likely inflammatory. A follow-up study in 3 months time is recommended Major depression - cont Abilify Plan: Med surge , continue 02 protocol, Duonebs/Albuterol, Solumedol, Levaquin, nicotine patch because of smoking, consulted quit smoking, continue current care Full code - Heparin prophylaxis Continued [facility] stay due to: multiple IV medications needed Discharge planning: home
[2016-05-04] MEDS ORDERED: ALBUT/IPRATROP 3MG/0.5MG NEB 3 ML VIAL INH PRN ×2 (10:00→11:15)
[2016-05-04] MEDS ORDERED: SODIUM CHLORIDE 0.65% NA SOLN 45 ML (OCEAN) ONE (11:31)
[2016-05-05] VITALS (10 sets, daily range): BP systolic 138–150; BP diastolic 77–89; PULSE 76–102; TEMP 36–36.6; O2SAT 85–97
[2016-05-05] MEDS: LEVOFLOXACIN / D5W 500 MG in PREMIXED IN D5W 100 ML IV SCH ×2 (00:16→23:57)
[2016-05-05] MEDS: ALBUT/IPRATROP 3MG/0.5MG NEB 3 ML VIAL INH SCH ×3 (01:35→14:25)
[2016-05-05] MEDS: METHYLPREDNISOLONE IV 60 MG in SYRINGE 0 ML IV SCH ×4 (01:53→20:57)
[2016-05-05] MEDS: ENOXAPARIN 40 MG/0.4 ML SYR SC SCH (09:00)
[2016-05-05] MEDS: ARIPIprazole TAB 10 MG TAB PO SCH (09:23)
[2016-05-05] MEDS: ATORVASTATIN 20 MG TAB PO SCH (09:23)
[2016-05-05] MEDS: OSELTAMIVIR PHOSPHATE 75 MG CAP PO SCH ×2 (09:24→20:59)
[2016-05-05] MEDS: NICOTINE 7 MG/24 HR TDSY TD SCH (09:24)
[2016-05-05] MEDS: TRIAMCINOLONE ACET 0.1% CR 15 GM TUBE EXT SCH ×2 (09:27→20:57)
--- NOTE | 2016-05-05 10:22 | Hospitalist Progress Note ---
Hospitalist Progress Note Date of Service May 05, 2016. (Natalia Conde PA-C) Subjective Pt evaluation today including: conversation w/ patient, physical exam, chart review, lab review, review of studies, review of inpatient medication list Patient reports his breathing is better. Still having a cough, however it is improved. It is nonproductive. Denies chest pain. No fever or chills. Additional Comments: 6 system review negative. Please see pertinent positives in the history of present illness section. (Natalia Conde PA-C) Objective Vital Signs Date Time Temp Pulse Resp B/P Pulse Ox O2 Delivery O2 Flow Rate FiO2 05/05/16 09:34 92 Humidified Oxygen 4.0 05/05/16 09:32 85 Nasal Cannula 3.0 Humidified Oxygen 05/05/16 07:56 36.0 76 18 138/84 90 Nasal Cannula 4.5 05/05/16 07:22 85 12 91 Nasal Cannula 5.0 05/05/16 01:35 92 18 96 Nasal Cannula 5.0 05/05/16 00:41 36.6 81 20 138/83 97 Nasal Cannula 6.0 05/05/16 00:00 Nasal Cannula 5.0 05/04/16 19:00 102 20 96 Nasal Cannula 6.0 05/04/16 16:10 91 Nasal Cannula 6.0 Mask 05/04/16 15:43 36.4 97 20 143/74 91 Nasal Cannula 6.0 05/04/16 14:01 117 20 96 Venturi Mask 50 05/04/16 12:24 Mask 15.0 50 (Natalia Conde PA-C) Physical Exam General Appearance: + mild distress (agitated) Neck: no JVD Respiratory/Chest: + pertinent finding (expiratory wheeze noted. Currently saturating at 85% on 3 L) Cardiovascular: regular rate, rhythm Abdomen: normal bowel sounds, non tender, soft Extremities: non-tender, no pedal edema Neurologic/Psychiatric: no motor/sensory deficits, oriented x 3, + pertinent finding (agitated) Skin: warm/dry (Natalai Conde PA-C) Assessment and Plan 50 y/o M w/Hx COPD, Major depression admitted to hospital on 05/02/2016 because of COPD exacerbation and influenza A infection Pt presents from a local [facility] where he was being treated for bronchitis and COPD with Augmentin and Prednisone. His symptoms have worsened despite treatment and he presented to the ER markedly dyspneic and hypoxic. He has a chronic productive cough which has worsened in addition to reported fevers. A CT chest was obtained which did not reveal a definitive pneumonia. An Influenza test came back (+). No significant improvement COPD exacerbation -Continue Solu-Medrol 60 mg IV every 6 hours-may try to taper tomorrow -Continue scheduled DuoNeb's every 6 hours and prn every 2 hrs -Continue O2 -Continue Levaquin Major depression -cont Abilify DVT prophylaxis -Lovenox 40 mg subQ daily -TEDS, SCDs CODE STATUS -LEVEL I FULL CODE (Natalia Conde, PA-C) I agree with PA assessment and plan and have personally seen and examined pt myself. Pt resting comfortably in bed, states wanting to go home, difficult to talk to Reports cough that is productive Staff notified of desaturations when tapering off O2 Lungs Dec BS B/L Cont O2 protocol (Jax Shukla D.O.)
[2016-05-05] MEDS: IPRATROPIUM BROMIDE/ALBUTEROL respimat INH INH SCH ×2 (18:06→23:54)
[2016-05-06] MEDS: METHYLPREDNISOLONE IV 60 MG in SYRINGE 0 ML IV SCH ×3 (02:04→15:41)
[2016-05-06] MEDS: IPRATROPIUM BROMIDE/ALBUTEROL respimat INH INH SCH ×3 (06:19→18:33)
[2016-05-06 06:20] LABS: BASO % 0.1 %; BASO ABS # 0.01 K/uL (0-0.2); COMPLETE YES; IG% 1.2 %; LYMPH % 5.1 %; MEAN CELL VOLUME 89.1 fL (80-100); MEAN CORPUSCULAR HEMOGLOBIN 28.1 pg (25-34); MEAN CORPUSCULAR HGB CONC 31.5 g/dl (32-36); MONO % 3.7 %; NEUT % 89.9 %; PLATELET COUNT 181 K/uL (130-400); RED BLOOD COUNT 5.16 M/uL (4.7-6.1); WHITE BLOOD COUNT 9.87 K/uL (4.8-10.8)
[2016-05-06 06:50] LABS: BUN/CREATININE RATIO 29.4 (10-20); CALCIUM 8.5 mg/dl (8.5-10.1); CREATININE 0.57 mg/dl (0.60-1.40); MAGNESIUM 2.1 mg/dl (1.8-2.4); POTASSIUM 4.5 mmol/L (3.5-5.1)
[2016-05-06 07:23] VITALS: BP 154/90; PULSE 66; TEMP 36.4; O2SAT 92
[2016-05-06] MEDS: ARIPIprazole TAB 10 MG TAB PO SCH (07:50)
[2016-05-06] MEDS: ATORVASTATIN 20 MG TAB PO SCH (07:51)
[2016-05-06] MEDS: NICOTINE 7 MG/24 HR TDSY TD SCH (07:52)
[2016-05-06] MEDS: OSELTAMIVIR PHOSPHATE 75 MG CAP PO SCH ×2 (07:52→19:58)
[2016-05-06] MEDS: TRIAMCINOLONE ACET 0.1% CR 15 GM TUBE EXT SCH ×2 (08:00→19:56)
[2016-05-06] MEDS: ENOXAPARIN 40 MG/0.4 ML SYR SC SCH (09:00)
[2016-05-06 12:50] VITALS: BP 129/81; PULSE 98; O2SAT 95
--- NOTE | 2016-05-06 13:30 | Hospitalist Progress Note ---
Hospitalist Progress Note Date of Service May 06, 2016. (Natalia Conde PA-C) Subjective Pt evaluation today including: conversation w/ patient, physical exam, chart review, lab review, review of inpatient medication list Patient says his breathing is better today. Mild nonproductive cough. This is also improving. Denies any fever or chills. No nausea or vomiting. The patient states that he smokes "a lot of cigarettes each day." When asked to quantify, he would just tell me that it's greater than one pack. A "good oxygen level" is 85% on room air Additional Comments: 6 system review negative. Please see pertinent positives in the history of present illness section. (Natalia Conde PA-C) Objective Vital Signs Date Time Temp Pulse Resp B/P Pulse Ox O2 Delivery O2 Flow Rate FiO2 05/06/16 12:50 98 18 129/81 95 Nasal Cannula 2.0 05/06/16 08:00 Nasal Cannula 3.0 05/06/16 07:23 36.4 66 20 154/90 92 Room Air 05/06/16 00:00 Nasal Cannula 5.0 05/05/16 23:50 36.6 79 16 150/89 90 3.0 05/05/16 20:00 Nasal Cannula 4.0 05/05/16 18:07 92 Nasal Cannula 3.0 Humidified Oxygen 05/05/16 16:43 Nasal Cannula 4.0 05/05/16 15:09 36.6 102 20 144/77 94 4.0 05/05/16 14:25 87 12 90 Nasal Cannula 4.0 (Natalia Conde PA-C) Physical Exam General Appearance: + mild distress (mild respiratory distress) Eyes: EOMI Neck: no JVD Respiratory/Chest: + pertinent finding (a few mild wheezes bilaterally.) Cardiovascular: regular rate, rhythm Abdomen: normal bowel sounds, non tender, soft Extremities: non-tender, no pedal edema Neurologic/Psychiatric: no motor/sensory deficits, oriented x 3 (Natalia Conde PA-C) Laboratory Results 05/06/16 05:52 Red Blood Count 5.16, Mean Corpuscular Volume 89.1, Mean Corpuscular Hemoglobin 28.1, Mean Corpuscular Hemoglobin Concent 31.5, Mean Platelet Volume 10.0, Neutrophils (%) (Auto) 89.9, Lymphocytes (%) (Auto) 5.1, Monocytes (%) (Auto) 3.7, Eosinophils (%) (Auto) 0.0, Basophils (%) (Auto) 0.1, Neutrophils # (Auto) 8.87, Lymphocytes # (Auto) 0.50, Monocytes # (Auto) 0.37, Eosinophils # (Auto) 0.00, Basophils # (Auto) 0.01 05/06/16 05:52 Test 05/06/16 05:52 White Blood Count 9.87 K/uL (4.8-10.8) Red Blood Count 5.16 M/uL (4.7-6.1) Hemoglobin 14.5 g/dL (14.0-18.0) Hematocrit 46.0 % (42-52) Mean Corpuscular Volume 89.1 fL (80-100) Mean Corpuscular Hemoglobin 28.1 pg (25-34) Mean Corpuscular Hemoglobin Concent 31.5 g/dl (32-36) Platelet Count 181 K/uL (130-400) Mean Platelet Volume 10.0 fL (7.4-10.4) Neutrophils (%) (Auto) 89.9 % Lymphocytes (%) (Auto) 5.1 % Monocytes (%) (Auto) 3.7 % Eosinophils (%) (Auto) 0.0 % Basophils (%) (Auto) 0.1 % Neutrophils # (Auto) 8.87 K/uL (1.4-6.5) Lymphocytes # (Auto) 0.50 K/uL (1.2-3.4) Monocytes # (Auto) 0.37 K/uL (0.11-0.59) Eosinophils # (Auto) 0.00 K/uL (0-0.5) Basophils # (Auto) 0.01 K/uL (0-0.2) RDW Standard Deviation 44.3 fL (36.4-46.3) RDW Coefficient of Variation 13.4 % (11.5-14.5) Immature Granulocyte % (Auto) 1.2 % Immature Granulocyte # (Auto) 0.12 K/uL (0.00-0.02) Anion Gap 3.0 mmol/L (3-11) Est Creatinine Clear Calc Drug Dose 178.3 ml/min Estimated GFR () 137.8 Estimated GFR (Non- 118.9 BUN/Creatinine Ratio 29.4 (10-20) Calcium Level 8.5 mg/dl (8.5-10.1) Magnesium Level 2.1 mg/dl (1.8-2.4) Last 24 Hours Test 05/06/16 05:52 White Blood Count 9.87 K/uL Red Blood Count 5.16 M/uL Hemoglobin 14.5 g/dL Hematocrit 46.0 % Mean Corpuscular Volume 89.1 fL Mean Corpuscular Hemoglobin 28.1 pg Mean Corpuscular Hemoglobin Concent 31.5 g/dl Platelet Count 181 K/uL Mean Platelet Volume 10.0 fL Neutrophils (%) (Auto) 89.9 % Lymphocytes (%) (Auto) 5.1 % Monocytes (%) (Auto) 3.7 % Eosinophils (%) (Auto) 0.0 % Basophils (%) (Auto) 0.1 % Neutrophils # (Auto) 8.87 K/uL Lymphocytes # (Auto) 0.50 K/uL Monocytes # (Auto) 0.37 K/uL Eosinophils # (Auto) 0.00 K/uL Basophils # (Auto) 0.01 K/uL RDW Standard Deviation 44.3 fL RDW Coefficient of Variation 13.4 % Immature Granulocyte % (Auto) 1.2 % Immature Granulocyte # (Auto) 0.12 K/uL Sodium Level 137 mmol/L Potassium Level 4.5 mmol/L Chloride Level 90 mmol/L Carbon Dioxide Level 44 mmol/L Anion Gap 3.0 mmol/L Blood Urea Nitrogen 17 mg/dl Creatinine 0.57 mg/dl Est Creatinine Clear Calc Drug Dose 178.3 ml/min Estimated GFR () 137.8 Estimated GFR (Non- 118.9 BUN/Creatinine Ratio 29.4 Random Glucose 136 mg/dl Calcium Level 8.5 mg/dl Magnesium Level 2.1 mg/dl (Natalia Conde PA-C) Assessment and Plan 50 y/o M w/Hx COPD, Major depression admitted to hospital on 05/02/2016 because of COPD exacerbation and influenza A infection Pt presents from a local [facility] where he was being treated for bronchitis and COPD with Augmentin and Prednisone. His symptoms have worsened despite treatment and he presented to the ER markedly dyspneic and hypoxic. He has a chronic productive cough which has worsened in addition to reported fevers. A CT chest was obtained which did not reveal a definitive pneumonia. An Influenza test came back (+). -Continue Tamiflu COPD exacerbation-Mild improvement--Could be close to baseline as pt tells me a "good O2" is 85% on RA -Taper Solu-Medrol 60 mg IV every 8 hours -Continue scheduled DuoNeb's every 6 hours and prn every 2 hrs -Wean O2 to 88-90A% -2 step -Continue Levaquin for a total of 7 days Major depression -cont Abilify DVT prophylaxis -Lovenox 40 mg subQ daily -TEDS, SCDs CODE STATUS -LEVEL I FULL CODE (Natalia Conde, PA-C) I agree with PA assessment and plan Labs and vitals reviewed COPD exab with underlying influenza A infection Lungs Dec BS B/L Continue current treatment, no need for pulm consult at this time (Jax Shukla, D.O.)
[2016-05-06 15:30] VITALS: BP 149/78; PULSE 76; TEMP 36.9; O2SAT 93
[2016-05-06 16:00] VITALS: O2SAT 93
[2016-05-06] MEDS: LEVOFLOXACIN 500 MG TAB PO SCH (19:57)
[2016-05-06 23:30] VITALS: BP 160/94; PULSE 61; TEMP 36.7; O2SAT 98
[2016-05-07] MEDS: METHYLPREDNISOLONE IV 60 MG in SYRINGE 0 ML IV SCH ×3 (00:58→09:02)
[2016-05-07] MEDS: IPRATROPIUM BROMIDE/ALBUTEROL respimat INH INH SCH ×3 (06:03→11:46)
[2016-05-07 06:25] LABS: BASO % 0.1 %; BASO ABS # 0.01 K/uL (0-0.2); COMPLETE YES; HEMATOCRIT 47.8 % (42-52); IG% 2.8 %; LYMPH % 5.6 %; LYMPH ABS # 0.49 K/uL (1.2-3.4); MEAN CELL VOLUME 87.7 fL (80-100); MEAN CORPUSCULAR HEMOGLOBIN 28.3 pg (25-34); MEAN CORPUSCULAR HGB CONC 32.2 g/dl (32-36); MEAN PLATELET VOLUME 10.1 fL (7.4-10.4); MONO % 4.5 %; PLATELET COUNT 187 K/uL (130-400); RED BLOOD COUNT 5.45 M/uL (4.7-6.1); WHITE BLOOD COUNT 8.72 K/uL (4.8-10.8)
[2016-05-07 06:50] LABS: BUN/CREATININE RATIO 34.1 (10-20); CALCIUM 8.7 mg/dl (8.5-10.1); CREATININE 0.63 mg/dl (0.60-1.40); POTASSIUM 4.4 mmol/L (3.5-5.1)
[2016-05-07 07:52] VITALS: BP 137/82; PULSE 55; TEMP 36.7; O2SAT 91
[2016-05-07 08:40] LABS: ALLEN TEST POS (POS); ARTERIAL BLD GAS O2 SATURATION 92.5 % (90-95); ARTERIAL BLOOD GAS BASE EXCESS 16.1 mEq/L (-9-1.8); ARTERIAL BLOOD GAS HCO3 44 mmol/L (19-24); ARTERIAL BLOOD GAS PO2 63 mm/Hg (80-95); ARTERIAL BLOOD GAS pH 7.46 (7.35-7.45); O2 ADMINISTRATION 2L
[2016-05-07] MEDS: ENOXAPARIN 40 MG/0.4 ML SYR SC SCH (09:00)
[2016-05-07] MEDS: TRIAMCINOLONE ACET 0.1% CR 15 GM TUBE EXT SCH (09:00)
[2016-05-07] MEDS: OSELTAMIVIR PHOSPHATE 75 MG CAP PO SCH (09:02)
[2016-05-07] MEDS: ARIPIprazole TAB 10 MG TAB PO SCH (09:03)
[2016-05-07] MEDS: ATORVASTATIN 20 MG TAB PO SCH (09:03)
[2016-05-07] MEDS: NICOTINE 7 MG/24 HR TDSY TD SCH (09:04)
[2016-05-07 09:35] VITALS: O2SAT 91
[2016-05-07] MEDS: LEVOFLOXACIN 500 MG TAB PO SCH (11:45)
[2016-05-07] MEDS ORDERED: PRED10TA PO (11:47)
[2016-05-07] MEDS ORDERED: NCDT7 TD (11:47)
[2016-05-07] MEDS ORDERED: IPRASOL4 INH (11:47)
[2016-05-07] MEDS ORDERED: LVQ500 PO (11:47)
[2016-05-07] MEDS ORDERED: TMF75 PO (11:47)
[2016-05-07] MEDS ORDERED: SYMIN160 INH (11:47)
[2016-05-07] MEDS ORDERED: IPRA1AER2 INH (11:47)
--- NOTE | 2016-05-07 11:51 | Discharge Instructions ---
Discharge Instructions Admission Reason for Admission: Copd Exacerbation Discharge Discharge Diagnosis / Problem: COPD exacerbation, influenza a Discharge Goals Goal(s): Improve function Activity Recommendations Activity Limitations: as noted below Exercise/Sports Limitations: as tolerated . Instructions / Follow-Up Instructions / Follow-Up You have been treated in the hospital for influenza A and a COPD exacerbation It is very important for you to stop smoking cigarettes Please take steroid taper as prescribed Please finish entire course of antibiotics Please finish entire course of Tamiflu Please start Combivent 2 puffs every 6 hours--> for significant respiratory distress, you may take the albuterol/ipratropium nebulizer treatment instead of the Combivent every 6 hours Please start new prescriptions Symbicort 2 puffs twice daily This may also be taken every 2 hours as needed for shortness of breath Please titrate oxygen per nasal cannula for an oxygen saturation approximately 88-91% Follow up with your primary care physician within one week Some pulmonary nodules were noted on the CT of your chest. It is recommended that you have a follow-up CT of the chest in 3 months Return to the emergency department if you have any of the following symptoms: -Fever of 103F or greater -Persistent vomiting - Persistent diarrhea -Lethargy -Chest pain -Worsening shortness of breath Current Hospital Diet Patient's current hospital diet: AHA Diet (Heart Healthy) Discharge Diet Recommended Diet: AHA Diet (Heart Healthy) Procedures Procedures Performed: CT chest IMPRESSION: 1. Technically limited study. No central emboli identified 2. Emphysema 3. Mediastinal and hilar lymphadenopathy, similar to December 2009 4. Bronchial wall thickening and scattered right upper lobe nodules, likely inflammatory. A follow-up study in 3 months time is recommended 5. Enlarged pulmonary arteries. A shunt cannot be excluded. Pending Studies Studies pending at discharge: no Medical Emergencies . Who to Call and When: Medical Emergencies: If at any time you feel your situation is an emergency, please call 911 immediately. . Non-Emergent Contact Non-Emergency issues call your: Primary Care Provider . . "Provider Documentation" section prepared by Natalia Conde. VTE Core Measure Inpt VTE Proph given/why not?: Enoxaparin (Lovenox)SQ, T.E.D. Stockings, SCD's
--- NOTE | 2016-05-07 12:09 | Discharge Summary ---
Discharge Summary Admission Date: May 02, 2016 at 22:40 Discharge Date: May 07, 2016 Discharge Disposition: Home (correctional facility) Principal Diagnosis: Flu A-COPD exacerbation Problems/Secondary Diagnoses: depression HLD Immunizations: Have You Had Influenza Vaccine: Unknown History of Tetanus Vaccine?: Unknown History of Pneumococcal: Unknown History of Hepatitis B Vaccine: Unknown Procedures: CT chest IMPRESSION: 1. Technically limited study. No central emboli identified 2. Emphysema 3. Mediastinal and hilar lymphadenopathy, similar to December 2009 4. Bronchial wall thickening and scattered right upper lobe nodules, likely inflammatory. A follow-up study in 3 months time is recommended 5. Enlarged pulmonary arteries. A shunt cannot be excluded. (Natalia Conde, ARGELIA) Medication Reconciliation New Medications: Budesonide/Formoterol Fumarate (Symbicort 160/4.5 Inhaler ) Aero 2 PUFFS INH BID for 30 Days, INHALER Prednisone Tab (Prednisone) 10 Mg Tab 10 MG PO UD, #37 TAB 6 tabs x 3 days 4 tabs x 3 days 2 tabs x 3 days 1 tabs x 1 day Ipratropium-Albuterol (Duoneb) 3 Ml Nebu 3 ML INH Q2H PRN for SOB/WHEEZING for 30 Days Ipratropium-Albuterol (Combivent Respimat) 1 Aer Aer 1 PUFFS INH Q6 for 30 Days Levofloxacin (Levofloxacin) 500 Mg Tab 500 MG PO DAILY@11 for 3 Days, TAB Nicotine (Nicotine) 1 Patch Tdsy 1 PATCH TD QAM for 30 Days Oseltamivir Phosphate (Tamiflu) 75 Mg Cap 75 MG PO BID for 2 Days, CAP Continued Medications: Acetaminophen (Tylenol Extra Strength) 500 Mg Tab 1000 MG PO Q6H PRN for Fever Aripiprazole (Abilify) 20 Mg Tab 20 MG PO DAILY, TAB Atorvastatin (Lipitor) 20 Mg Tab 20 MG PO DAILY, TAB Diphenhydramine Hcl (Diphenhydramine Hcl) 50 Mg Cap 50 MG PO BID Triamcinolone Acet (Aristocort 0.1%) 90 Appln/30 Gm Cr 1 APPLN TOP BID Discontinued Medications: Albuterol (Ventolin Hfa) 60 Puffs/5400 Mcg Aers 2 PUFFS INH QID PRN for Shortness of Breath Amoxicillin & Pot Clavulanate (Augmentin 875-125 mg) 1 Tab Tab 1 TAB PO BID for 10 Days, #20 TAB FIRST DOSE 05/02/2016 Ciclesonide (Alvesco) 160 Mcg/Act Aer 1 PUFF INH BID Prednisone Tab (Prednisone) 10 Mg Tab 10 MG PO UD, TAB TAPER DOWN DOSING STARTED 05/02/2015 AND PRESCRIBED FOLLOWS: TAKE 6 TABLETS (60 MG) DAILY FOR 3 DAYS THEN, TAKE 5 TABLETS (50 MG) DAILY FOR 3 DAYS THEN, TAKE 4 TABLETS (40 MG) DAILY FOR 3 DAYS THEN, TAKE 3 TABLETS (30 MG) DAILY FOR 3 DAYS THEN, NO FURTHER INSTRUCTIONS PROVIDED Discharge Exam Feeling better-breathing is good today. Minor cough. No fever/chills. No nausea. No CP Review of Systems: Constitutional: No fever Respiratory: + cough Cardiovascular: No chest pain Abdomen: No nausea Physical Exam: General Appearance: + mild distress (mild respiratory distress) Eyes: EOMI Neck: no JVD Respiratory/Chest: + pertinent finding (decreased breath sounds at the bases with mild expiratory wheeze noted bilaterally. Currently off oxygen and saturating at 85%.) Cardiovascular: regular rate, rhythm Abdomen / GI: normal bowel sounds, non tender, soft Extremities: no calf tenderness, no pedal edema Neurologic/Psychiatric: no motor/sensory deficits, oriented x 3 Skin: warm/dry (Natalia Conde, PATitiC) Hospital Course 50 y/o M w/Hx COPD, Major depression admitted to hospital on 05/02/2016 because of COPD exacerbation and influenza A infection Pt presents from a local [facility] where he was being treated for bronchitis and COPD with Augmentin and Prednisone. His symptoms have worsened despite treatment and he presented to the ER markedly dyspneic and hypoxic. He has a chronic productive cough which has worsened in addition to reported fevers. A CT chest was obtained which did not reveal a definitive pneumonia. An Influenza test came back (+). -Continue Tamiflu for a total of 5 days COPD exacerbation-Mild improvement--Could be close to baseline as pt tells me a "good O2" is 85% on RA -Solu-Medrol taper -ABG-acute on chronic respiratory failure with hypoxia and hypercapnia -Continue scheduled DuoNeb's every 6 hours and prn every 2 hrs -Patient prescribed Combivent 2 puffs every 6 hours daily. Substitute duo nebs when in severe respiratory distress. -Started on Symbicort 2 puffs BID -Was able to wean O2 to 2 L -Titrate O2 upon discharge to a goal of 88-91% -Continue Levaquin for a total of 7 days Chronic tobacco use-very heavy. Patient admits that he smokes anywhere from 1- 5 packs of cigarettes per day! -Nicotine patch -Encourage cessation Hyperlipidemia -Continue atorvastatin Major depression -cont Abilify DVT prophylaxis -Lovenox 40 mg subQ daily -TEDS, SCDs CODE STATUS -LEVEL I FULL CODE Total Time Spent: Greater than 30 minutes This includes examination of the patient, discharge planning, medication reconciliation, and communication with other providers. (Natalia Conde, PA-C) I agree with PA assessment and plan and have seen and examined pt myself Pt resting comfortably in bed Pt is O2 dependant Lungs: Dec BS B/L Labs reviewed Cont tamiflu, prednisone on discharge Discharge back to alf (Jax Shukla, D.O.) Discharge Instructions Please refer to the electronic Patient Visit Report (Discharge Instructions) for additional information. (Natalia Conde, PA-C)
[2016-05-07 12:20] VITALS: BP 137/82; PULSE 55; TEMP 36.7; O2SAT 91
[2016-05-07] MEDS ORDERED: METHYLPREDNISOLONE IV 60 MG in SYRINGE 0 ML IV SCH (20:00)
== END 2016-05-07 14:45 | DRG 193 ==
LOC: ENRESERVDT → ENRESERVTM → EDBD 19:34 → C.EDB 19:40 → C.2T 22:40 → EDBEDREQSVC 05-03 12:23 → C.4E 05-03 14:59
PROVIDERS: ADMIT Internal Medicine; ATTEND Hospitalist
DX: J09.X2 Influenza due to identified novel influenza A virus with other respiratory manifestations (principal); J96.21 Acute and chronic respiratory failure with hypoxia; J96.22 Acute and chronic respiratory failure with hypercapnia; J44.1 Chronic obstructive pulmonary disease with (acute) exacerbation; J44.0 Chronic obstructive pulmonary disease with (acute) lower respiratory infection; J40 Bronchitis, not specified as acute or chronic; F32.9 Major depressive disorder, single episode, unspecified; E78.5 Hyperlipidemia, unspecified; R91.8 Other nonspecific abnormal finding of lung field; F17.210 Nicotine dependence, cigarettes, uncomplicated; Z86.718 Personal history of other venous thrombosis and embolism; Z79.52 Long term (current) use of systemic steroids; Z79.899 Other long term (current) drug therapy; Z79.51 Long term (current) use of inhaled steroids

== ENCOUNTER 2017-11-18 00:52 | Inpatient (IN) | payer OTHER ==
[2017-11-18] VITALS (7 sets, daily range): BP systolic 114–180; BP diastolic 58–77; PULSE 54–85; TEMP 36.3–36.7; O2SAT 90–99; Ht 188 cm; Wt 72.8 kg
[~2017-11-18] VITALS: Ht 188 cm; Wt 72.8 kg
[~2017-11-18 00:52] MED LIST changes: +ACET-1257 PO; -ALBUAER2 INH; +ARIP20TA4 PO; +ATOR-22 PO; -CGN5 PO; -CLX20 PO; +DIPH1CAP34 PO; +IPRA-64 INH; +IPRA1AER2 INH; +LVQ500 PO; -MEDLIST; +NCDT7 TD; -RISP2TAB22 PO; +TMF75 PO; +TRMCR130WC TOP
[2017-11-18] MEDS ORDERED: ALBUTEROL 0.083% NEBU SOLN 3 ML VIAL INH ONE (00:59)
[2017-11-18] MEDS ORDERED: METHYLPREDNISOLONE 125 MG VIAL IV STA (01:02)
[2017-11-18] MEDS ORDERED: ACETAMINOPHEN 500 MG TAB PO STA (01:02)
--- NOTE | 2017-11-18 01:12 | EMERGENCY ROOM VISIT NOTE ---
History Report prepared by Gloria: Kolton Peterson Under the Supervision of: Dr. Scottie Gastelum M.D. First contact with patient: 00:54 Chief Complaint: SHORTNESS OF BREATH Stated Complaint: SHORT OF BREATH History of Present Illness The patient is a 52 year old male who presents to the Emergency Room with complaints of worsening shortness of breath beginning a few days ago. The patient states he has a history of asthma and COPD. He reports he smokes a lot of day and does not keep track. The patient notes the last time he was hospitalized for his breathing was a few years ago. He states he uses an inhaler every morning and evening. The patient reports he has not been able to sleep for the past 8 days because of his breathing. He notes his symptoms worsen with walking. The patient states he was started on prednisone a few weeks ago. He denies abdominal pain, chest pain, a cardiac history, severe headache, leg pain, leg swelling, a history of blood clots, recent falls, recent injury, and recent antibiotic use. EMS states the patient has an O2Sat of 86 on 4L of [place]. They report his O2Sat increased to 94 with 6L of oxygen. EMS notes the patient has been coughing and received a breathing treatment in route. They state he had an oral temperature of 100.0. Source of History: patient, EMS Onset: a few days ago Position: other (lungs) Quality: other (SOB) Timing: worsening Modifying Factors (Worsening): other (walking) Modifying Factors (Relieving): oxygen Associated Symptoms: + fevers, + cough, No headache, No chest pain, No abdominal pain Note: Denies: leg pain, leg swelling, a history of blood clots, recent falls, recent injury, and recent antibiotic use. Review of Systems See HPI for pertinent positives & negatives. A total of 10 systems reviewed and were otherwise negative. Past Medical & Surgical Medical Problems: (1) Asthma (2) COPD exacerbation (3) Emphysema/COPD (4) Lymphadenopathy Family History Patient reports no known family medical history. Social History Smoking Status: Former Smoker Alcohol Use: none Housing Status: other Occupation Status: unemployed Current/Historical Medications Scheduled Aripiprazole (Abilify), 10 MG PO HS Atorvastatin (Lipitor), 20 MG PO HS Budesonide/Formoterol Fumarate (Symbicort 160/4.5 Inhaler), 2 PUFFS INH BID Diphenhydramine Hcl (Diphenhydramine Hcl), 50 MG PO HS Umeclidinium [place] (Incruse Ellipta), 1 PUFF INH DAILY Scheduled PRN Ipratropium-Albuterol (Duoneb), 1 TREATMENT INH QID PRN for Shortness of Breath Levalbuterol Tartrate (Levalbuterol Tartrate Hfa), 2 PUFFS INH QID PRN for Shortness of Breath Allergies Coded Allergies: No Known Allergies (Unverified , 11/18/17) Physical Exam Vital Signs Date Time Temp Pulse Resp B/P (MAP) Pulse Ox O2 Delivery O2 Flow Rate FiO2 11/18/17 03:05 37.6 94 20 134/77 96 Nasal Cannula 4.0 11/18/17 02:11 73 11/18/17 01:49 82 20 135/72 100 Nebulizer 11/18/17 01:20 84 20 96 Nasal Cannula 4.0 11/18/17 01:12 94 11/18/17 01:12 Room Air 11/18/17 01:01 Room Air 4.0 Nasal Cannula 11/18/17 00:54 38.6 105 25 128/84 83 Room Air 6.0 Physical Exam GENERAL: Patient is unwell and uncomfortable appearing and in mild distress. EYES: No scleral icterus, unremarkable pupils. ENT: Mucous membranes moist, no nasal congestion. Edentulous. NECK: No masses appreciated, no meningismus, trachea is midline. RESPIRATORY: Dyspneic. Tachypneic. Diffuse wheezing and crackles with very tight breath sounds. CARDIOVASCULAR: Regular rate and rhythm. No murmurs, rubs, gallops appreciated. GASTROINTESTINAL: Abdomen soft, nontender, no peritonitis. Bowel sounds positive. No masses appreciated. BACK: No midline tenderness, no CVA tenderness EXTREMITIES: Normal motion all extremities, no cyanosis, no edema. NEUROLOGIC: Alert and oriented, no acute motor or sensory deficits, no focal weakness, cranial nerves grossly intact. SKIN: No jaundice, no diaphoresis. Tobacco staining on the bilateral hands. Medical Decision & Procedures ER Provider Diagnostic Interpretation: X ray results are stated below per my interpretation: Chest x-ray: One View: Severe emphysema bilaterally. Scaring at bases. Similar to previous. No infiltrate. No effusion. Laboratory Results 11/18/17 01:22 Red Blood Count 4.89, Mean Corpuscular Volume 91.2, Mean Corpuscular Hemoglobin 30.1, Mean Corpuscular Hemoglobin Concent 33.0, Mean Platelet Volume 10.2, Neutrophils (%) (Auto) 80.6, Lymphocytes (%) (Auto) 8.5, Monocytes (%) (Auto) 9.4, Eosinophils (%) (Auto) 0.6, Basophils (%) (Auto) 0.1, Neutrophils # (Auto) 8.39, Lymphocytes # (Auto) 0.89, Monocytes # (Auto) 0.98, Eosinophils # (Auto) 0.06, Basophils # (Auto) 0.01 11/18/17 01:22 Test 11/18/17 01:12 11/18/17 01:22 Bedside Lactic Acid Venous 0.55 mmol/L (0.90-1.70) White Blood Count 10.41 K/uL (4.8-10.8) Red Blood Count 4.89 M/uL (4.7-6.1) Hemoglobin 14.7 g/dL (14.0-18.0) Hematocrit 44.6 % (42-52) Mean Corpuscular Volume 91.2 fL (80-100) Mean Corpuscular Hemoglobin 30.1 pg (25-34) Mean Corpuscular Hemoglobin Concent 33.0 g/dl (32-36) Platelet Count 192 K/uL (130-400) Mean Platelet Volume 10.2 fL (7.4-10.4) Neutrophils (%) (Auto) 80.6 % Lymphocytes (%) (Auto) 8.5 % Monocytes (%) (Auto) 9.4 % Eosinophils (%) (Auto) 0.6 % Basophils (%) (Auto) 0.1 % Neutrophils # (Auto) 8.39 K/uL (1.4-6.5) Lymphocytes # (Auto) 0.89 K/uL (1.2-3.4) Monocytes # (Auto) 0.98 K/uL (0.11-0.59) Eosinophils # (Auto) 0.06 K/uL (0-0.5) Basophils # (Auto) 0.01 K/uL (0-0.2) RDW Standard Deviation 44.9 fL (36.4-46.3) RDW Coefficient of Variation 13.7 % (11.5-14.5) Immature Granulocyte % (Auto) 0.8 % Immature Granulocyte # (Auto) 0.08 K/uL (0.00-0.02) Anion Gap 3.0 mmol/L (3-11) Est Creatinine Clear Calc Drug Dose 150.6 ml/min Estimated GFR () 132.2 Estimated GFR (Non- 114.1 BUN/Creatinine Ratio 11.3 (10-20) Calcium Level 8.2 mg/dl (8.5-10.1) Magnesium Level 2.0 mg/dl (1.8-2.4) Troponin I 0.024 ng/ml (0-0.045) Laboratory results as reviewed by me. Medications Administered Medications (Trade) Dose Ordered Sig/Aron Route Start Time Stop Time Status Last Admin Dose Admin Albuterol/ Ipratropium (Duoneb) 12 ml ONE ONCE INH 11/18/17 01:15 11/18/17 01:16 DC 11/18/17 01:20 12 ML Methylprednisolone Sodium Succinate (Solu-Medrol IV) 125 mg NOW STAT IV 11/18/17 01:02 11/18/17 01:04 DC 11/18/17 01:15 125 MG Acetaminophen (Tylenol Tab) 1,000 mg NOW STAT PO 11/18/17 01:02 11/18/17 01:04 DC 11/18/17 01:15 1,000 MG Levofloxacin (Levaquin / D5W) 750 mg NOW STAT IV 11/18/17 01:32 11/18/17 01:33 DC 11/18/17 01:49 750 MG Vancomycin HCl 2000 mg/Sodium Chloride 540 ml @ 200 mls/hr NOW STAT IV 11/18/17 03:31 11/18/17 06:12 DC 11/18/17 03:41 200 MLS/HR ECG Per My Interpretation Indication: SOB/dyspnea Rate (beats per minute): 94 Rhythm: normal sinus Findings: peaked T-waves (mildly), no acute ischemic change, no ectopy, other ( QTc of 427) Comparison ECG Date: 04/2016 Change: no significant change ED Course 0058: The patient was evaluated in room A03. A complete history and physical exam was performed. 0114: I reevaluated the patient. Respiratory is at bedside. 0144: Upon reevaluation, the patient still has very tight sounds on repeat lung examination. He is breathing better. Discussed results and treatment plan with the patient. He verbalized understanding and agreement with the treatment plan. The patient will be evaluated for further management. 0231: I discussed the patient's case with Dr. Jean Baptiste [facility] Hospitalist. The patient will be evaluated for further management and care. Medical Decision Differential: Infectious, Reactive Airway Disease, Pneumonia, Pneumothorax, COPD , CHF, ACS, Pulmonary Embolism, MSK, GI, Dissection, amongst other etiologies entertained. 52 yr old male with known COPD who continues smoking 3-4 ppd arrives in acute respiratory distress with diffusely tight lung sounds, tachycardia, fever, and hypoxia. No clear PNA on cxr. EKG without ischemia. Trop wnl currently. After hour neb mild improvement though still with some diffuse wheezing. Blood cultures and LA obtained. Given empiric Levaquin given his fevers and hypoxia. Fluids for mild LA which is likely reparatory related. Hospitalist consulted for further management of patient. Medication Reconcilliation Current Medication List: was personally reviewed by me Blood Pressure Screening Patient's blood pressure: Normal blood pressure Blood pressure disposition: Did not require urgent referral Consults Time Called: [phone] Consulting Physician: Dr. Jean Baptiste [facility] Hospitalist Returned Call: [phone] I discussed the patient's case with Dr. Jean Baptiste [facility] Hospitalist. The patient will be evaluated for further management and care. Impression Primary Impression: Asthma with exacerbation Additional Impression: Respiratory distress Scribe Attestation The scribe's documentation has been prepared under my direction and personally reviewed by me in its entirety. I confirm that the note above accurately reflects all work, treatment, procedures, and medical decision making performed by me. Departure Information Dispostion Being Evaluated By Hospitalist Referrals Jarrett OLVERA (PCP) Patient Instructions My [facility] Problem Qualifiers
[2017-11-18] MEDS ORDERED: ALBUT/IPRATROP 3MG/0.5MG NEB 3 ML VIAL INH ONE (01:15)
[2017-11-18] MEDS ORDERED: SYMIN160 INH (01:30)
[2017-11-18] MEDS ORDERED: LEVA45AE INH (01:30)
[2017-11-18] MEDS ORDERED: UMEC1INH INH (01:30)
[2017-11-18] MEDS ORDERED: IPRA-64 INH (01:30)
[2017-11-18] MEDS ORDERED: ARIP1TAB8 PO (01:30)
[2017-11-18 01:32] LABS: BASO % 0.1 %; BASO ABS # 0.01 K/uL (0-0.2); EOS % 0.6 %; EOS ABS # 0.06 K/uL (0-0.5); HEMATOCRIT 44.6 % (42-52); HEMOGLOBIN 14.7 g/dL (14.0-18.0); IG# 0.08 K/uL (0.00-0.02); LYMPH % 8.5 %; LYMPH ABS # 0.89 K/uL (1.2-3.4); MEAN CELL VOLUME 91.2 fL (80-100); MEAN CORPUSCULAR HEMOGLOBIN 30.1 pg (25-34); MEAN PLATELET VOLUME 10.2 fL (7.4-10.4); MONO % 9.4 %; MONO ABS # 0.98 K/uL (0.11-0.59); NEUT % 80.6 %; NEUT ABS # 8.39 K/uL (1.4-6.5); PLATELET COUNT 192 K/uL (130-400); RED CELL DISTRIBUTION WIDTH CV 13.7 % (11.5-14.5); RED CELL DISTRIBUTION WIDTH SD 44.9 fL (36.4-46.3); WHITE BLOOD COUNT 10.41 K/uL (4.8-10.8)
[2017-11-18] MEDS ORDERED: LEVAQUIN 750MG / 150ML D5W IV STA (01:32)
[2017-11-18 01:57] LABS: CALCIUM 8.2 mg/dl (8.5-10.1); CREATININE 0.62 mg/dl (0.60-1.40); POTASSIUM 4.2 mmol/L (3.5-5.1)
[2017-11-18] MEDS ORDERED: VANCOMYCIN IV 1,000 MG in SODIUM CHLORIDE 0.9% 250ML 250 ML IV STA (03:20)
[2017-11-18] MEDS ORDERED: ONDANSETRON INJ 2 MG/ML 2 ML VIAL IV PRN (03:30)
[2017-11-18] MEDS ORDERED: VANCOMYCIN CONSULT ACTIVE PRN (03:30)
[2017-11-18] MEDS ORDERED: ALBUT/IPRATROP 3MG/0.5MG NEB 3 ML VIAL INH PRN (03:30)
[2017-11-18] MEDS ORDERED: PIPERACILL/TAZOBAC CONSULT ACTIVE PRN (03:30)
[2017-11-18] MEDS ORDERED: ACETAMINOPHEN 325 MG TAB PO PRN (03:30)
[2017-11-18] MEDS ORDERED: VANCOMYCIN IV 2,000 MG in SODIUM CHLORIDE 0.9% 500ML 500 ML IV STA (03:31)
[2017-11-18] MEDS ORDERED: PIPERACILL/TAZOBAC IV 3.375 GM in DEXTROSE 5% 100ML 100 ML IV SCH (06:00)
[2017-11-18] MEDS ORDERED: PIPERACILL/TAZOBAC IV 3.375 GM in D5W 100 ML IV ONE (06:00)
--- NOTE | 2017-11-18 06:50 | History and Physical ---
History & Physical Date & Time of Service: Nov 18, 2017 at 06:31 Chief Complaint: Copd Exacerbation, Lymphadenopathy Primary Care Physician: Jarrett OLVERA History of Present Illness Source: patient, hospital records The patient is a 52-year-old male resident of [facility], most recently admitted to [facility] from May 02 - May 07, 2016 for hypoxia, who presents to the emergency department via EMS with worsening shortness of breath over the past week. He does continue to smoke regularly, but an unknown amount. He does regularly using his inhaler twice a day. He has shortness of breath at rest, dyspnea on exertion, and is not able to sleep lying backward at night due to his breathing. He was started on prednisone a few weeks ago. Past Medical/Surgical History Medical Problems: (1) Acute bronchitis (2) Asthma (3) COPD exacerbation (4) COPD exacerbation (5) Emphysema/COPD (6) Hypoxia (7) Lymphadenopathy Family History Patient reports no known family medical history. Social History Smoking Status: Current Every Day Smoker Smokeless Tobacco Use: No Alcohol Use: none Drug Use: none Housing status: other (Resident of [facility]) Occupational Status: unemployed Immunizations History of Influenza Vaccine: Unknown History of Tetanus Vaccine?: Unknown History of Pneumococcal: Unknown History of Hepatitis B Vaccine: Unknown Allergies Coded Allergies: No Known Allergies (Unverified , 11/18/17) Home Medications Scheduled Aripiprazole (Abilify), 10 MG PO HS Atorvastatin (Lipitor), 20 MG PO HS Budesonide/Formoterol Fumarate (Symbicort 160/4.5 Inhaler), 2 PUFFS INH BID Diphenhydramine Hcl (Diphenhydramine Hcl), 50 MG PO HS Umeclidinium [place] (Incruse Ellipta), 1 PUFF INH DAILY Scheduled PRN Ipratropium-Albuterol (Duoneb), 1 TREATMENT INH QID PRN for Shortness of Breath Levalbuterol Tartrate (Levalbuterol Tartrate Hfa), 2 PUFFS INH QID PRN for Shortness of Breath Review of Systems The patient denies chest pain, palpitations, lower extremity swelling, sore throat, fevers, chills, sweats, fatigue, nausea, vomiting, diarrhea , constipation, abdominal pain, pelvic pain, blood in urine or stool, dysuria, urinary frequency or urgency, lightheadedness , dizziness, headache, memory loss, loss of consciousness, rash, abnormal bruising or bleeding, imbalance, focal or generalized weakness, numbness or tingling in arms or legs, generalized arthralgias or myalgias, back or neck pain, or night sweats. He does report occasional protrusion of his lower abdominal hernia, but does not have discomfort, and does easily regress spontaneously. The review of systems is otherwise negative other than for that already noted above, and at least 10 systems have been reviewed. Physical Exam Vital Signs Date Time Temp Pulse Resp B/P (MAP) Pulse Ox O2 Delivery O2 Flow Rate FiO2 11/18/17 04:51 36.6 85 18 120/71 92 Nasal Cannula 4.0 11/18/17 04:45 Nasal Cannula 4.0 11/18/17 04:29 78 20 133/70 95 11/18/17 03:05 37.6 94 20 134/77 96 Nasal Cannula 4.0 11/18/17 02:11 73 11/18/17 01:49 82 20 135/72 100 Nebulizer 11/18/17 01:20 84 20 96 Nasal Cannula 4.0 11/18/17 01:12 94 11/18/17 01:12 Room Air 11/18/17 01:01 Room Air 4.0 Nasal Cannula 11/18/17 00:54 38.6 105 25 128/84 83 Room Air 6.0 The patient is awake, alert and oriented 3, well developed and well nourished, normocephalic and atraumatic, lying in bed and in no acute distress. HEENT--PERRL, EOMI, mucous membranes and oropharynx dry. Neck--supple. No JVD. No bruits. Thyroid normal, trachea midline, no adenopathy. Heart--normal S1 and S2. No murmurs, rubs or gallops. Lungs--coarse breath sounds with wheezes bilaterally. No respiratory distress or accessory muscle use. Abdomen--normal bowel sounds and soft. Nontender. Nondistended. Very mild weakness of infraumbilical musculature, with no noticeable hernia. Extremities--no cyanosis or clubbing. No edema. There are good distal pulses b/ l. Dermatologic--normal skin turgor, normal color, no abnormal lymph nodes, no rash. Neurologic--cranial nerves II through XII grossly intact. Rheumatologic--normal range of motion. Psychiatric--normal affect. Diagnostics Laboratory Results Results Past 24 Hours Test 11/18/17 01:12 11/18/17 01:22 Range/Units Bedside Lactic Acid Venous 0.55 0.90-1.70 mmol/L White Blood Count 10.41 4.8-10.8 K/uL Red Blood Count 4.89 4.7-6.1 M/uL Hemoglobin 14.7 14.0-18.0 g/dL Hematocrit 44.6 42-52 % Mean Corpuscular Volume 91.2 80-100 fL Mean Corpuscular Hemoglobin 30.1 25-34 pg Mean Corpuscular Hemoglobin Concent 33.0 32-36 g/dl Platelet Count 192 130-400 K/uL Mean Platelet Volume 10.2 7.4-10.4 fL Neutrophils (%) (Auto) 80.6 % Lymphocytes (%) (Auto) 8.5 % Monocytes (%) (Auto) 9.4 % Eosinophils (%) (Auto) 0.6 % Basophils (%) (Auto) 0.1 % Neutrophils # (Auto) 8.39 1.4-6.5 K/uL Lymphocytes # (Auto) 0.89 1.2-3.4 K/uL Monocytes # (Auto) 0.98 0.11-0.59 K/uL Eosinophils # (Auto) 0.06 0-0.5 K/uL Basophils # (Auto) 0.01 0-0.2 K/uL RDW Standard Deviation 44.9 36.4-46.3 fL RDW Coefficient of Variation 13.7 11.5-14.5 % Immature Granulocyte % (Auto) 0.8 % Immature Granulocyte # (Auto) 0.08 0.00-0.02 K/uL Sodium Level 138 136-145 mmol/L Potassium Level 4.2 3.5-5.1 mmol/L Chloride Level 100 98-107 mmol/L Carbon Dioxide Level 35 21-32 mmol/L Anion Gap 3.0 3-11 mmol/L Blood Urea Nitrogen 7 7-18 mg/dl Creatinine 0.62 0.60-1.40 mg/dl Est Creatinine Clear Calc Drug Dose 150.6 ml/min Estimated GFR () 132.2 Estimated GFR (Non- 114.1 BUN/Creatinine Ratio 11.3 10-20 Random Glucose 113 70-99 mg/dl Calcium Level 8.2 8.5-10.1 mg/dl Magnesium Level 2.0 1.8-2.4 mg/dl Troponin I 0.024 0-0.045 ng/ml Microbiology Results 11/18/17 Blood Culture, Received Pending 11/18/17 Blood Culture, Received Pending 11/18/17 MRSA DNA Surveillance Screen, Received Pending Diagnostic Radiology CT of chest without contrast: 2.3 cm subpleural nodular density at the left base for example axial to 48 with adjacent small area of patchy airspace opacity is nonspecific and may be inflammatory or infectious with neoplastic process not excluded. This may have been previously obscured in 2010 due to collapse, consolidation on the prior study. Basilar atelectasis. Small patchy areas of peripheral groundglass opacity. Pulmonary emphysema. Small anterior pericardial fluid. No pleural effusion. Impression Assessment and Plan COPD exacerbation with hypoxia/mediastinal and hilar lymphadenopathy/2.3 cm subpleural nodular density at the left base, infectious versus inflammatory versus neoplastic-- Admit to monitored bed due to hypoxia. Continue 4 L nasal cannula oxygen, titrate to keep pulse ox greater than or equal to 92%. Received Solu-Medrol 125 mg IV, levofloxacin 750 mg IV, and and hour-long DuoNeb while in the ED. Broad-spectrum treatment due to present living situation at [facility] Vancomycin IV per pharmacokinetic monitoring Zosyn 3.375 mg IV every 8 hours Levofloxacin 500 mg IV every 24 hours Continue Symbicort 160/4.5, 2 puffs twice daily. Duonebs every 2 hours when necessary. Solu-Medrol 40 mg IV every 8 hours Guaifenesin extended release 600 mg by mouth twice a day Nasal cannula oxygen titrate to keep pulse ox greater than or equal to 92% Sputum Gram stain and culture. Hold Incruse Ellipta due to nonformulary status. Consult pulmonary. Hyperlipidemia-- Continue atorvastatin 20 mg at bedtime. Continue Abilify 10 mg p.o. at bedtime. Advanced Directives Existing Advance Directive: No Existing Living Will: No Existing Power of Food Production Manager: No Resuscitation Status VTE Prophylaxis Will order VTE Prophylaxis: Yes
--- NOTE | 2017-11-18 07:36 | DIAGNOSTIC IMAGING REPORT ---
CHEST ONE VIEW PORTABLE CLINICAL HISTORY: Fever. COMPARISON STUDY: Chest radiograph and chest CT May 02, 2016 per FINDINGS: Emphysema is noted. There is no pneumothorax or pleural effusion. Enlargement of the central pulmonary arteries is again noted. There are bibasilar opacities. Cardiac size is normal. Mediastinal contours are normal. IMPRESSION: 1. Bibasilar opacities which may reflect pneumonia or atelectasis. Radiographic follow-up to ensure resolution is recommended. 2. Emphysema. Electronically signed by: Salvatore De Jesus M.D. 11/18/2017 7:35 AM Dictated Date/Time: 11/18/2017 7:32 AM
[2017-11-18 07:37] LABS: INR 1.1 (0.9-1.1)
[2017-11-18] MEDS ORDERED: METHYLPREDNISOLONE IV 40 MG in SYRINGE 0 ML IV SCH (08:00)
--- NOTE | 2017-11-18 08:16 | DIAGNOSTIC IMAGING REPORT ---
CT SCAN OF THE CHEST WITHOUT IV CONTRAST CLINICAL HISTORY: Abnormal chest x-ray. COMPARISON STUDY: Chest CT dated 05/02/2016 and 12/16/2009. Chest x-ray dated 11/18/2017. TECHNIQUE: CT scan of the thorax was performed from the thoracic inlet to the upper abdomen. Images are reviewed in the axial, sagittal, and coronal planes. IV contrast was not administered for this examination as per the referring clinician. A dose lowering technique was utilized adhering to the principles of ALARA. CT DOSE: 279.09 mGy.cm FINDINGS: Thyroid: Imaged portions of the thyroid gland are normal in size and attenuation. Thoracic aorta: There is mild atherosclerotic calcification of the thoracic aorta, which is normal in caliber and demonstrates standard 3-vessel arch anatomy. Heart: The heart is top normal in size and there is a small pericardial effusion. The pulmonary trunk is dilated, measuring 4.2 cm in transverse diameter. This suggests pulmonary artery hypertension. Lungs and pleural spaces: Advanced emphysematous change is identified. Foci of patchy nodular consolidative change are seen in the posterior right upper lobe and the anterior left lower lobe. The largest nodular component is seen on image #251 and measures up to 2.4 cm. These findings are new from 05/02/2016 and likely represents an infectious/inflammatory pneumonitis. There are trace pleural effusions. The trachea and central airways are clear. Mediastinum: Scattered subcentimeter mediastinal lymph nodes are not pathologically enlarged by size criteria. Barbara: Not well assessed without IV contrast. Axillae: There is no axillary lymphadenopathy. Upper abdomen: Partially visualized upper abdominal viscera is within normal limits. Skeletal structures: No lytic or blastic bony lesions are seen. Calcific tendinopathy is noted in the right shoulder. There are mild superior endplate compression deformities seen from T1 through T7. IMPRESSION: 1. Advanced emphysema. 2. There are foci of patchy nodular consolidative change seen in the right upper lobe and the left lower lobe. These findings are new from 05/02/2016, and likely represent an infectious/inflammatory pneumonitis. Follow-up chest CT in 3 months time is recommended to document resolution. 3. There are trace pleural effusions. 4. Small pericardial effusion. 5. Additional findings as above. Electronically signed by: Joe Osborne M.D. 11/18/2017 8:15 AM Dictated Date/Time: 11/18/2017 7:04 AM
[2017-11-18] MEDS: GUAIFENESIN 200 MG TAB PO SCH ×2 (08:27→20:33)
[2017-11-18] MEDS: ENOXAPARIN 40 MG/0.4 ML SYR SC SCH (08:27)
[2017-11-18] MEDS: BUDESONIDE/FORMOTEROL FUMARATE 160/4.5 60 PUFFS/INHALER INH SCH ×2 (08:52→20:32)
[2017-11-18] MEDS: LEValbuterol HFA 15GM INHALER INH SCH ×4 (08:53→20:33)
[2017-11-18] MEDS ORDERED: VANCOMYCIN IV 1,000 MG in SODIUM CHLORIDE 0.9% 250ML 250 ML IV SCH (12:00)
[2017-11-18] MEDS: PIPERACILL/TAZOBAC IV 3.375 GM in D5W 100ML IV SCH ×2 (12:20→20:32)
--- NOTE | 2017-11-18 18:27 | Pulmonary Consultation ---
History General Date of Service: Nov 18, 2017. Stated Complaint: Copd Exacerbation, Lymphadenopathy HPI Dear Dr. Dai: Thank you for your kind referral of Mr. Yoon to pulmonary service. This is 52 -year-old gentleman who is incarcerated, presented to the hospital with increasing shortness of breath accompanied with cough and nonproductive sputum. The patient denies any hemoptysis or weight loss, the patient continued to smoke 2-3 packs per day. The patient had similar symptoms in April 2016 when he was treated also for pneumonia. Recently the patient was started on Symbicort which she has been using and and the plan to add Spiriva as well. The patient uses his inhaler a few times a day. He denies any chest pain, no nausea or vomiting, no heartburn, but he does have significant postnasal drip according to him. He does not use oxygen. No muscle fatigue reported and no increased swelling in his lower extremities. He has not had PFTs done in the past. The patient underwent a chest x-ray followed by CAT scan which showed 2 infiltrates in the right upper lobe and left lower lobe. The patient was admitted to the hospital and started empirically on antibiotics and steroids with COPD exacerbation and community-acquired pneumonia. He has not been in the hospital in the past year and a half. Never been intubated, has not had COPD exacerbation on the last time when he had pneumonia. Historian: patient, other (Records) Review of Systems Constitutional: denies: no symptoms, as stated in HPI, chills, diaphoresis, fever, malaise, weakness, weight gain, weight loss, other Eyes: denies: no symptoms, as stated in HPI, eye pain, tearing, itching, redness, discharge, double vision, visual changes, blurred vision, photophobia, other ENT: denies: no symptoms, as stated in HPI, ear pain, ear discharge, loss of hearing, tinnitus, nasal pain, nasal congestion, rhinorrhea, epistaxis, sore throat, stridor, throat swelling, mouth pain, mouth swelling, dental pain, gum swelling, other Cardiovascular: denies: no symptoms, as stated in HPI, chest pain, chest pressure, chest tightness, diaphoresis, edema, intermittent claudication, orthopnea, palpitations, syncope, other Respiratory: reports: cough, shortness of breath Gastrointestinal: denies: no symptoms, as stated in HPI, abdominal pain, constipation, diarrhea, nausea, vomiting, hematemesis, hematochezia, hemorrhoids , anorexia, appetite changes, stool changes, flatulence, belching, food intolerance, jaundice, other Genitourinary - Male: denies: no symptoms, as stated in HPI, dysuria, hematuria , hesitancy, impotence, itching, penile discharge, rash, urinary frequency, urinary incontinence, urinary retention, urinary urgency, other Musculoskeletal: denies: no symptoms, as stated in HPI, arthralgias, neck pain , back pain, joint pain, joint swelling, deformity, myalgias, muscle spasms, other Integumentary: denies: no symptoms, as stated in HPI, rash, redness, warmth, itching, dryness, lesions, lumps, change in color, change in hair/nails, other Neurologic: denies: no symptoms, as stated in HPI, headache, dizziness, general weakness, focal weakness, numbness, tingling, paresthesia, pre-existing deficit, tremors, tics, vertigo, seizure, lethargy, memory loss, other Psychiatric: denies: no symptoms, as stated in HPI, anxiety, depression, suicidal ideation, homicidal ideation, visual hallucinations, auditory hallucinations, mood changes, alcohol abuse, drug abuse, other Past Medical History Past Medical History: As above in the first paragraph. Family History Patient reports no known family medical history. Social History Hx Tobacco Use In Past Year?: Yes Smoking Status: Current Every Day Smoker Housing status: other (Resident of [facility]) Occupational Status: unemployed Immunizations History of Influenza Vaccine: Unknown History of Tetanus Vaccine?: Unknown History of Pneumococcal: Unknown History of Hepatitis B Vaccine: Unknown Allergies Coded Allergies: No Known Allergies (Unverified , 11/18/17) Current Medications Reported Home Medications Medications Dose Route/Sig Max Daily Dose Days Date Category Levalbuterol Tartrate Hfa (Levalbuterol Tartrate) 45 Mcg/Act Aer 2 Puffs INH QID PRN 11/18/17 Reported Symbicort 160/4.5 Inhaler (Budesonide/Formoterol Fumarate) 120 Puffs/ Aero 2 Puffs INH BID 11/18/17 Reported Incruse Ellipta (Umeclidinium [place]) 62.5 Mcg/Inh Inh 1 Puff INH DAILY 11/18/17 Reported Duoneb (Ipratropium-Albuterol) 3 Ml Nebu 1 Treatment INH QID PRN 11/18/17 Reported Abilify (Aripiprazole) 10 Mg Tab 10 Mg PO HS 11/18/17 Reported Diphenhydramine Hcl 50 Mg Cap 50 Mg PO HS 05/02/16 Reported Lipitor (Atorvastatin Calcium) 20 Mg Tab 20 Mg PO HS 05/02/16 Reported Physical Physical Exam Vital Signs: Date Time Temp Pulse Resp B/P (MAP) Pulse Ox O2 Delivery O2 Flow Rate FiO2 11/18/17 16:00 90 Nasal Cannula 1.0 11/18/17 15:29 36.6 54 16 180/58 (98) 99 Nasal Cannula 2.0 11/18/17 11:27 36.3 60 18 134/77 (96) 91 Nasal Cannula 2.0 11/18/17 08:00 Room Air 11/18/17 07:10 36.7 83 18 114/66 (82) 95 11/18/17 04:51 36.6 85 18 120/71 92 Nasal Cannula 4.0 11/18/17 04:45 Nasal Cannula 4.0 11/18/17 04:29 78 20 133/70 95 11/18/17 03:05 37.6 94 20 134/77 96 Nasal Cannula 4.0 11/18/17 02:11 73 11/18/17 01:49 82 20 135/72 100 Nebulizer 11/18/17 01:20 84 20 96 Nasal Cannula 4.0 11/18/17 01:12 94 11/18/17 01:12 Room Air 11/18/17 01:01 Room Air 4.0 Nasal Cannula 11/18/17 00:54 38.6 105 25 128/84 83 Room Air 6.0 General Appearance: NO APPARENT DISTRESS Eyes: EOMI ENT: NORMAL THROAT EXAM Neck: TRACHEA MIDLINE Respiratory: BREATH SOUNDS NORMAL Cardiovasular: REGULAR RATE/RHYTHM, NORMAL S1S2, NO M/G/R Abdomen: NON TENDER, NO MASSES Lower Extremities: NO EDEMA Neuro: ALERT, ORIENTED x 3, NORMAL MOTOR EXAM, NORMAL SENSATION Psychiatric: NORMAL AFFECT Diagnostics Labs Results Past 24 Hours Test 11/18/17 01:12 11/18/17 01:22 11/18/17 06:48 Range/Units Bedside Lactic Acid Venous 0.55 0.90-1.70 mmol/L White Blood Count 10.41 4.8-10.8 K/uL Red Blood Count 4.89 4.7-6.1 M/uL Hemoglobin 14.7 14.0-18.0 g/dL Hematocrit 44.6 42-52 % Mean Corpuscular Volume 91.2 80-100 fL Mean Corpuscular Hemoglobin 30.1 25-34 pg Mean Corpuscular Hemoglobin Concent 33.0 32-36 g/dl Platelet Count 192 130-400 K/uL Mean Platelet Volume 10.2 7.4-10.4 fL Neutrophils (%) (Auto) 80.6 % Lymphocytes (%) (Auto) 8.5 % Monocytes (%) (Auto) 9.4 % Eosinophils (%) (Auto) 0.6 % Basophils (%) (Auto) 0.1 % Neutrophils # (Auto) 8.39 1.4-6.5 K/uL Lymphocytes # (Auto) 0.89 1.2-3.4 K/uL Monocytes # (Auto) 0.98 0.11-0.59 K/uL Eosinophils # (Auto) 0.06 0-0.5 K/uL Basophils # (Auto) 0.01 0-0.2 K/uL RDW Standard Deviation 44.9 36.4-46.3 fL RDW Coefficient of Variation 13.7 11.5-14.5 % Immature Granulocyte % (Auto) 0.8 % Immature Granulocyte # (Auto) 0.08 0.00-0.02 K/uL Sodium Level 138 136-145 mmol/L Potassium Level 4.2 3.5-5.1 mmol/L Chloride Level 100 98-107 mmol/L Carbon Dioxide Level 35 21-32 mmol/L Anion Gap 3.0 3-11 mmol/L Blood Urea Nitrogen 7 7-18 mg/dl Creatinine 0.62 0.60-1.40 mg/dl Est Creatinine Clear Calc Drug Dose 150.6 ml/min Estimated GFR () 132.2 Estimated GFR (Non- 114.1 BUN/Creatinine Ratio 11.3 10-20 Random Glucose 113 70-99 mg/dl Calcium Level 8.2 8.5-10.1 mg/dl Magnesium Level 2.0 1.8-2.4 mg/dl Troponin I 0.024 0-0.045 ng/ml Prothrombin Time 11.1 9.0-12.0 SECONDS Prothromb Time International Ratio 1.1 0.9-1.1 Microbiology Results 11/18/17 Blood Culture, Received Pending 11/18/17 Blood Culture, Received Pending 11/18/17 MRSA DNA Surveillance Screen - Final, Complete Specimen Negative for MRSA by DNA Probe Diagnostic Radiology I have reviewed the CAT scan and the chest x-ray myself which revealed to infiltrates 1 of them is forming more of nodularity in the left lower lobe. The etiology is unknown. Presumably infectious. Also noted severely enlarged pulmonary artery. Previous workup including echocardiogram in 2009 showed EF of 65% with PA pressure in the range of 45. Impression Assessment and Plan 1. Possible community-acquired pneumonia, however the appearance in the sub- pleuritic area with 2 lesions are is concerning for inflammatory disease such as RB ILD or even early case of malignancy. 2. Tree-in-bud appearance was noted. 3. Severely dilated pulmonary artery representing pulmonary hypertension, WHO class III. 4. Nicotine addiction. Plan: 1. Continue with systemic steroids, Levaquin and bronchodilators. 2. Change the patient to p.o. prednisone 60 mg daily for 7 days. 3. Change antibiotics to 500 mg p.o. Levaquin for 7 days. 4. Smoking cessation counseling. 5. Repeat the CAT scan with IV contrast in 2-4 weeks. 6. If there is no improvement in the 2 infiltrates in the right upper lobe and left lower lobe, a bronchoscopy with lung biopsy versus transthoracic biopsy of the left lower lobe lesion would be indicated. 7. PET scan is another option as an outpatient. Should be done if the repeat CAT scan showed no improvement. 8. Repeat echocardiogram to evaluate for the pulmonary pressure. His pulmonary artery measuring 41 mm. Thank you, will follow.
[2017-11-18] MEDS: METHYLPREDNISOLONE IV 40 MG in SYRINGE 0 ML IV SCH (20:45)
[2017-11-18] MEDS ORDERED: ARIPIprazole TAB 10 MG TAB PO SCH (21:00)
[2017-11-18] MEDS ORDERED: ATORVASTATIN 20 MG TAB PO SCH (21:00)
[2017-11-18] MEDS ORDERED: NURSING DECISION MEDICATION ORDER SCH (22:45)
[2017-11-18] MEDS ORDERED: SODIUM CHLORIDE 0.65% NA SOLN 45 ML (OCEAN) NAE PRN (23:00)
[2017-11-19] MEDS ORDERED: COUGH DROP (SUGAR FREE) LOZ 24 LOZ/1 BOX LOZ PRN (00:45)
[2017-11-19] MEDS ORDERED: LEVOFLOXACIN / D5W 500 MG in PREMIXED IN D5W 100 ML IV SCH (02:00)
[2017-11-19] MEDS: PIPERACILL/TAZOBAC IV 3.375 GM in D5W 100ML IV SCH (03:32)
[2017-11-19 05:14] VITALS: PULSE 88; O2SAT 92
[2017-11-19 07:39] VITALS: BP 133/78; PULSE 61; TEMP 36.5; O2SAT 94
[2017-11-19 07:50] LABS: HEMATOCRIT 44.3 % (42-52); HEMOGLOBIN 14.4 g/dL (14.0-18.0); IG# 0.06 K/uL (0.00-0.02); LYMPH % 7.4 %; LYMPH ABS # 1.01 K/uL (1.2-3.4); MEAN CELL VOLUME 91.7 fL (80-100); MEAN CORPUSCULAR HEMOGLOBIN 29.8 pg (25-34); MEAN CORPUSCULAR HGB CONC 32.5 g/dl (32-36); MEAN PLATELET VOLUME 10.2 fL (7.4-10.4); MONO % 2.3 %; MONO ABS # 0.32 K/uL (0.11-0.59); NEUT % 89.9 %; NEUT ABS # 12.28 K/uL (1.4-6.5); PLATELET COUNT 190 K/uL (130-400); RED CELL DISTRIBUTION WIDTH CV 13.6 % (11.5-14.5); RED CELL DISTRIBUTION WIDTH SD 44.4 fL (36.4-46.3); WHITE BLOOD COUNT 13.67 K/uL (4.8-10.8)
[2017-11-19] MEDS: LEValbuterol HFA 15GM INHALER INH SCH (08:24)
[2017-11-19] MEDS: METHYLPREDNISOLONE IV 40 MG in SYRINGE 0 ML IV SCH (08:24)
[2017-11-19] MEDS: GUAIFENESIN 200 MG TAB PO SCH (08:24)
[2017-11-19] MEDS: BUDESONIDE/FORMOTEROL FUMARATE 160/4.5 60 PUFFS/INHALER INH SCH (08:24)
[2017-11-19] MEDS: ENOXAPARIN 40 MG/0.4 ML SYR SC SCH (08:25)
[2017-11-19 08:27] LABS: CALCIUM 9.1 mg/dl (8.5-10.1); CREATININE 0.66 mg/dl (0.60-1.40); POTASSIUM 5.1 mmol/L (3.5-5.1)
[2017-11-19] MEDS ORDERED: LEVO1TAB35 PO (09:26)
[2017-11-19] MEDS ORDERED: PRED10TA PO (09:26)
--- NOTE | 2017-11-19 09:29 | Discharge Instructions ---
Discharge Instructions Date of Service Nov 19, 2017. Admission Reason for Admission: Copd Exacerbation, Lymphadenopathy Discharge Discharge Diagnosis / Problem: COPD exacerbation Discharge Goals Goal(s): Improve function, Diagnostic testing (CT chest in 3 months) Activity Recommendations Activity Limitations: resume your previous activity . Instructions / Follow-Up Instructions / Follow-Up Medications: - PREDNISONE: follow taper, starting tomorrow take 40mg daily x 2 days, decrease by 10mg every 2 days until complete - LEVAQUIN: 750mg daily x 5 more days COPD exacerbation: improved quickly with Solu Medrol IV and antibiotics complete treatment above CT of the chest showed some inflammatory changes there was a 2.3cm nodule noted in the chest, most likely inflammatory, but given smoking history should have repeat CT chest in 3 months FOLLOW UP - physician at [facility] in one week Current Hospital Diet Patient's current hospital diet: Regular Diet Discharge Diet Recommended Diet: Regular Diet Pending Studies Studies pending at discharge: no Medical Emergencies . Who to Call and When: Medical Emergencies: If at any time you feel your situation is an emergency, please call 911 immediately. . Non-Emergent Contact Non-Emergency issues call your: Primary Care Provider Call Non-Emergent contact if: you have any medication questions . . "Provider Documentation" section prepared by Bello Marquez. . [place] Drug Monitoring Program Search Results: no issues identified
[2017-11-19 09:41] VITALS: BP 133/78; PULSE 61; TEMP 36.5; O2SAT 94
--- NOTE | 2017-11-19 11:25 | Pulmonology Progress Note ---
Pulmonary Progress Note Date of Service Nov 19, 2017. Attending Dr. Lewis Subjective The patient is feeling better, he is less short of breath, he does not have any cough or sputum production, no fever or constitutional symptoms and no events overnight. Review of system was unremarkable. Objective Physical exam on 11/19/2017 showed middle-aged gentleman does not appear to be in respiratory distress, S1-S2 regular rate and rhythm, no wheezing or crackles bilaterally. Abdomen is benign no edema. Leukocytosis noted on the lab work consistent with steroids. Assessment & Plan 1. Right upper lobe and left lower lobe infiltrate, with nodularity. 2. COPD, gold level 2 possibly, with exacerbation, improved. 3. Nicotine addiction. Plan: 1. Change Levaquin to 500 mg p.o. daily and treat for additional 5 days. 2. Change steroids to prednisone 50 mg p.o. daily and continued for 7 days then stop it. 3. Continue with Symbicort and rescue bronchodilators. 4. Adding Spiriva would be helpful. 5. It is important that the patient will have a repeat CAT scan in 2-4 weeks to assure resolution or decrease in the size of the nodularity of the right upper lobe and left lower lobe infiltrates. If not, the patient would need either PET scan or directly transthoracic needle biopsy. 6. Patient can be discharged. Thank you for the kind referral, will follow as needed. Data Medications: Current Inpatient Medications Medications (Trade) Dose Ordered Sig/Aron Route Start Time Stop Time Status Last Admin Dose Admin Enoxaparin Sodium (Lovenox Inj) 40 mg Q24H SC 11/18/17 09:00 12/18/17 08:59 11/19/17 08:25 40 MG Acetaminophen (Tylenol Tab) 650 mg Q4H PRN PO 11/18/17 03:30 12/18/17 03:29 Aripiprazole (Abilify Tab) 10 mg HS PO 11/18/17 21:00 12/18/17 20:59 11/18/17 20:33 10 MG Atorvastatin Calcium (Lipitor Tab) 20 mg HS PO 11/18/17 21:00 12/18/17 20:59 11/18/17 20:33 20 MG Budesonide/ Formoterol Fumarate (Symbicort 160/ 4.5 Inh) 2 puffs BID INH 11/18/17 09:00 12/18/17 08:59 11/19/17 08:24 2 PUFFS Albuterol/ Ipratropium (Duoneb) 3 ml Q2H PRN INH 11/18/17 03:30 12/18/17 03:29 11/19/17 05:14 3 ML Levalbuterol (Xopenex Hfa Inhaler) 2 puffs QID INH 11/18/17 09:00 12/18/17 08:59 11/19/17 08:24 2 PUFFS Diphenhydramine HCl (Benadryl Cap) 50 mg HS PO 11/18/17 21:00 12/18/17 20:59 11/18/17 20:33 50 MG Ondansetron HCl (Zofran Inj) 4 mg Q6H PRN IV 11/18/17 03:30 12/18/17 03:29 Guaifenesin (Organidin Nr Tab) 600 mg BID PO 11/18/17 09:00 12/18/17 08:59 11/19/17 08:24 600 MG Sodium Chloride ([place]) 1 sprays PRN PRN LO 11/18/17 23:00 12/18/17 22:59 11/18/17 22:58 1 SPRAYS Menthol (Nice Reginaldo) 1 reginaldo PRN PRN REGINALDO 11/19/17 00:45 12/19/17 00:44 Prednisone (PredniSONE TAB) 50 mg DAILY PO 11/19/17 12:00 12/19/17 11:59 UNV Levofloxacin (Levaquin Tab) 500 mg DAILY@11 PO 11/20/17 11:00 11/27/17 10:59 UNV Vital Signs: Date Time Temp Pulse Resp B/P (MAP) Pulse Ox O2 Delivery O2 Flow Rate FiO2 11/19/17 09:41 36.5 61 18 94 Nasal Cannula 11/19/17 08:00 Nasal Cannula 2.0 11/19/17 07:39 36.5 61 18 133/78 (96) 94 Nasal Cannula 2.0 11/19/17 05:14 88 20 92 Nasal Cannula 2.0 11/19/17 00:30 Nasal Cannula 2.0 11/18/17 23:31 36.6 67 18 116/71 (86) 90 1.0 11/18/17 16:00 90 Nasal Cannula 1.0 11/18/17 15:29 36.6 54 16 180/58 (98) 99 Nasal Cannula 2.0 11/18/17 11:27 36.3 60 18 134/77 (96) 91 Nasal Cannula 2.0 Laboratory Results: Last 24 Hours Test 11/19/17 07:16 White Blood Count 13.67 K/uL Red Blood Count 4.83 M/uL Hemoglobin 14.4 g/dL Hematocrit 44.3 % Mean Corpuscular Volume 91.7 fL Mean Corpuscular Hemoglobin 29.8 pg Mean Corpuscular Hemoglobin Concent 32.5 g/dl Platelet Count 190 K/uL Mean Platelet Volume 10.2 fL Neutrophils (%) (Auto) 89.9 % Lymphocytes (%) (Auto) 7.4 % Monocytes (%) (Auto) 2.3 % Eosinophils (%) (Auto) 0.0 % Basophils (%) (Auto) 0.0 % Neutrophils # (Auto) 12.28 K/uL Lymphocytes # (Auto) 1.01 K/uL Monocytes # (Auto) 0.32 K/uL Eosinophils # (Auto) 0.00 K/uL Basophils # (Auto) 0.00 K/uL RDW Standard Deviation 44.4 fL RDW Coefficient of Variation 13.6 % Immature Granulocyte % (Auto) 0.4 % Immature Granulocyte # (Auto) 0.06 K/uL Sodium Level 135 mmol/L Potassium Level 5.1 mmol/L Chloride Level 98 mmol/L Carbon Dioxide Level 35 mmol/L Anion Gap 2.0 mmol/L Blood Urea Nitrogen 11 mg/dl Creatinine 0.66 mg/dl Est Creatinine Clear Calc Drug Dose 134.8 ml/min Estimated GFR () 128.8 Estimated GFR (Non- 111.2 BUN/Creatinine Ratio 17.2 Random Glucose 112 mg/dl Calcium Level 9.1 mg/dl
--- NOTE | 2017-11-19 13:39 | ECHOCARDIOGRAM REPORT ---
*NOTICE TO RECEIVING LIBERTARIAN AGENCY This information is strictly Confidential and protected under [place] law. [place] law prohibits you from making any further disclosure of this information unless further disclosure is expressly permitted by the written consent of the person to whom it pertains or is authorized by law. A general authorization for the release of medical or other information is not sufficient for this purpose. Hospital accepts no responsibility if the information is made available to any other person, INCLUDING THE PATIENT. Interpretation Summary * Name: ZAY VAUGHN [id number] Study Date: 11/19/2017 07:32 AM BP: 116/71 mmHg * Patient Location: .[id number]\[id number]\1 HR: 88 * : 1965 (M/d/yyyy) Gender: Male Height: 74 in * Age: 52 yrs Ethnicity: CA Weight: 160 lb * Ordering Physician: Frantz Lewis * Referring Physician: MAY [place]lalito * Performed By: Michelle Gregorio RDCS * * Reason For Study: PULMONARY HTN * BSA: 2.0 m2 * The study was technically adequate. * Compared to prior study, changes are noted. * -- Conclusions -- * The right ventricle is mildly dilated. * The right ventricular systolic function is normal as assessed by tricuspid annular plane systolic excursion (TAPSE) (normal >1.5 cm). * Trivial tricuspid regurgitation with inadequate signal to calculate the pulmonary arterial systolic pressure. * Normal inferior vena cava size and collapsability with sniff indicates a normal right atrial pressure of 3 mmHg * Ejection Fraction = 60-65%. * The left ventricular wall motion is normal. Procedure Details * A complete two-dimensional transthoracic echocardiogram was performed (2D, M-mode, Doppler and color flow Doppler). Left Ventricle * The left ventricle is normal in size. * There is no thrombus. * There is normal left ventricular wall thickness. * Ejection Fraction = 60-65%. * Left ventricular systolic function is normal. * The left ventricular wall motion is normal. Right Ventricle * The right ventricle is mildly dilated. * The right ventricular cavity size is enlarged (basal dimension >4.2 cm in right ventricular apical 4-chamber view). * The right ventricular systolic function is normal as assessed by tricuspid annular plane systolic excursion (TAPSE) (normal >1.5 cm). Atria * The left atrial size is normal. * Right atrial size is normal. * There is no evidence of atrial septal defect, but resolution does not allow assessment for a patent foramen ovale. Mitral Valve * The mitral valve is normal. * There is no mitral valve stenosis. * Significant mitral regurgitation is absent. Tricuspid Valve * The tricuspid valve is normal. * There is no tricuspid stenosis. * Trivial tricuspid regurgitation with inadequate signal to calculate the pulmonary arterial systolic pressure. Aortic Valve * The aortic valve is trileaflet. * Aortic stenosis is absent. * There is no significant aortic regurgitation. Pulmonic Valve * The pulmonary valve is inadequately visualized, but the Doppler data is adequate for interpretation. * There is no pulmonic valvular stenosis. * Trace pulmonic regurgitation. Great Vessels * The aortic root and proximal ascending aorta are normal sized. Pericardium/Pleural * There is no pericardial effusion. Great Vessels * Normal inferior vena cava size and collapsability with sniff indicates a normal right atrial pressure of 3 mmHg Left Ventricular Diastolic Function * Pulse wave TDI of the anterior and posterior mitral annulas demonstrates normal LV relaxation MMode 2D Measurements and Calculations IVSd 1.0 cm IVSs 1.8 cm LVIDd 5.1 cm LVIDs 3.3 cm LVPWd 0.98 cm LVPWs 1.4 cm IVS/LVPW 1.1 FS 35.3 % EDV(Teich) 123.3 ml ESV(Teich) 43.9 ml EF(Teich) 64.4 % EDV(cubed) 132.0 ml ESV(cubed) 35.7 ml EF(cubed) 73.0 % % IVS thick 67.8 % % LVPW thick 45.1 % LV mass(C)d 191.5 grams LV mass(C)dI 96.9 grams/m\S\2 LV mass(C)s 197.0 grams LV mass(C)sI 99.7 grams/m\S\2 SV(Teich) 79.5 ml SI(Teich) 40.2 ml/m\S\2 SV(cubed) 96.3 ml SI(cubed) 48.7 ml/m\S\2 ACS 1.5 cm LA dimension 3.9 cm asc Aorta Diam 3.0 cm LVOT diam 2.1 cm LVOT area 3.5 cm\S\2 LVAd ap4 34.6 cm\S\2 LVLd ap4 8.6 cm EDV(MOD-sp4) 112.6 ml EDV(sp4-el) 117.6 ml LVAs ap4 18.5 cm\S\2 LVLs ap4 6.8 cm ESV(MOD-sp4) 42.2 ml ESV(sp4-el) 42.7 ml EF(MOD-sp4) 62.6 % EF(sp4-el) 63.7 % LVAd ap2 40.2 cm\S\2 LVLd ap2 9.1 cm EDV(MOD-sp2) 147.4 ml EDV(sp2-el) 150.7 ml LVAs ap2 21.4 cm\S\2 LVLs ap2 6.9 cm ESV(MOD-sp2) 56.6 ml ESV(sp2-el) 56.3 ml EF(MOD-sp2) 61.6 % EF(sp2-el) 62.6 % LVLd %diff 5.0 % EDV(MOD-bp) 129.7 ml LVLs %diff 0.91 % ESV(MOD-bp) 49.5 ml EF(MOD-bp) 61.8 % SV(MOD-sp4) 70.5 ml SI(MOD-sp4) 35.6 ml/m\S\2 SV(MOD-sp2) 90.8 ml SI(MOD-sp2) 45.9 ml/m\S\2 SV(MOD-bp) 80.1 ml SI(MOD-bp) 40.5 ml/m\S\2 SV(sp4-el) 74.9 ml SI(sp4-el) 37.9 ml/m\S\2 SV(sp2-el) 94.4 ml SI(sp2-el) 47.7 ml/m\S\2 Doppler Measurements and Calculations MV E max oc 86.8 cm/sec MV A max oc 53.4 cm/sec MV E/A 1.6 MV dec time 0.33 sec Ao V2 max 108.1 cm/sec Ao max PG 4.7 mmHg Ao max PG (full) -0.31 mmHg [place](V,A) 3.7 cm\S\2 [place](V,D) 3.7 cm\S\2 LV V1 max PG 5.0 mmHg LV V1 max 111.6 cm/sec PA V2 max 61.5 cm/sec PA max PG 1.5 mmHg PI end-d oc 61.3 cm/sec
[2017-11-20] MEDS ORDERED: LEVOFLOXACIN 500 MG TAB PO SCH (22:00)
--- NOTE | 2017-11-21 08:21 | Discharge Summary ---
Discharge Summary Date of Service Nov 19, 2017. Discharge Summary Admission Date: Nov 18, 2017 at 03:38 Discharge Date: Nov 19, 2017 Discharge Disposition: Home Principal Diagnosis: COPD exacerbation Problems/Secondary Diagnoses: Acute respiratory failure with hypoxia Immunizations: Have You Had Influenza Vaccine: Unknown History of Tetanus Vaccine?: Unknown History of Pneumococcal: Unknown History of Hepatitis B Vaccine: Unknown Procedures: none Consultations: Pulmonology Medication Reconciliation New Medications: Levofloxacin (Levaquin) 750 Mg Tab 750 MG PO DAILY for 5 Days, #5 TAB Prednisone (Prednisone) 10 Mg Tab 40 MG PO DAILY for 8 Days, #20 TAB taper: 40mg x 2 days, 30mg x 2 days, 20mg x 2 days, 10mg x 2 days and stop Continued Medications: Aripiprazole (Abilify) 10 Mg Tab 10 MG PO HS, TAB Atorvastatin (Lipitor) 20 Mg Tab 20 MG PO HS, TAB Budesonide/Formoterol Fumarate (Symbicort 160/4.5 Inhaler) 120 Puffs/ Aero 2 PUFFS INH BID, #10.6 GM 3 Refills Diphenhydramine Hcl (Diphenhydramine Hcl) 50 Mg Cap 50 MG PO HS Ipratropium-Albuterol (Duoneb) 3 Ml Nebu 1 TREATMENT INH QID PRN for Shortness of Breath, INHA Levalbuterol Tartrate (Levalbuterol Tartrate Hfa) 45 Mcg/Act Aer 2 PUFFS INH QID PRN for Shortness of Breath Umeclidinium [place] (Incruse Ellipta) 62.5 Mcg/Inh Inh 1 PUFF INH DAILY Discharge Exam Patient feeling much better on the day of discharge, breathing well, minimal cough. Titrated off of oxygen. Review of Systems: Constitutional: No fever, No chills, No sweats, No weight loss, No weakness , No fatigue, No problem reported Eyes: No worsening of vision, No eye pain, No redness, No discharge, No diplopia, No problem reported ENT: No hearing loss, No unusual epistaxis, No nasal symptoms, No sore throat, No tinnitus, No dental problems, No trouble swallowing, No problem reported Respiratory: + dyspnea on exertion, No cough, No sputum, No wheezing, No shortness of breath, No dyspnea at rest, No hemoptysis, No problem reported Cardiovascular: No chest pain, No orthopnea, No PND, No edema, No claudication, No palpitations, No problem reported Abdomen: No pain, No nausea, No vomiting, No diarrhea, No constipation, No GI bleeding, No problem reported Musculoskeletal: No joint pain, No muscle pain, No swelling, No calf pain, No problem reported Genitourinary - Male: No hematuria, No dysuria, No urinary frequency, No urinary urgency Neurologic: No memory loss, No paralysis, No weakness, No numbness/tingling , No vertigo, No balance problems, No problem reported Endocrine: No fatigue, No excessive thirst, No excessive urination, No problem reported Hematologic / Lymphatic: No abnormal bleeding/bruising, No clotting problems , No swollen lymph nodes, No night sweats, No problem reported Integumentary: No rash, No itch, No new/changing skin lesions, No color change, No bleeding, No problem reported Physical Exam: General Appearance: WD/WN, no apparent distress Eyes: normal inspection, EOMI, sclerae normal ENT: normal ENT inspection, hearing grossly normal, pharynx normal Neck: supple, no adenopathy, no JVD, trachea midline Respiratory/Chest: chest non-tender, lungs clear, normal breath sounds, no respiratory distress, no accessory muscle use Cardiovascular: regular rate, rhythm, no edema, no gallop, no JVD, no murmur , normal peripheral pulses Abdomen / GI: normal bowel sounds, non tender, soft, no organomegaly Extremities: normal inspection, no calf tenderness, normal capillary refill , no pedal edema, normal range of motion, pelvis stable 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, no motor/sensory deficits , alert, normal mood/affect, normal reflexes, oriented x 3 Skin: normal color, warm/dry, no rash Hospital Course 52 yo male admitted with COPD exacerbation - COPD exacerbation: improved quickly with Solu Medrol and broad spectrum antibiotics changed to Prednisone on the day of discharge, antibiotics tapered to Levaquin complete a Prednisone taper over the next 8 days Levaquin 750mg PO daily x 5 more days resume maintenance inhalers - Acute respiratory failure with hypoxia resolved, titrated to room air on day of discharge - Lung nodule: 2.3cm, likely inflammatory radiology recommends repeat CT chest in 3 months - Dyslipidemia: continue statin - Depression: mood stable, continue Abilify d/c back to [facility] Total Time Spent: Greater than 30 minutes This includes examination of the patient, discharge planning, medication reconciliation, and communication with other providers. Discharge Instructions Please refer to the electronic Patient Visit Report (Discharge Instructions) for additional information. Follow-Up Physician at [facility] in one week Additional Copies To [facility]
== END 2017-11-19 12:24 | disposition home or self-care (01) | DRG 190 ==
LOC: EDBD 00:52 → C.EDA 00:54 → C.2T 03:38 → ENRESERV 04:20 → C.MS2W 11:56
PROVIDERS: ADMIT Hospitalist; ATTEND Internal Medicine
DX: J44.1 Chronic obstructive pulmonary disease with (acute) exacerbation (principal); J96.01 Acute respiratory failure with hypoxia; I27.20 Pulmonary hypertension, unspecified; E78.5 Hyperlipidemia, unspecified; F32.9 Major depressive disorder, single episode, unspecified; Z79.52 Long term (current) use of systemic steroids; Z79.899 Other long term (current) drug therapy; F17.200 Nicotine dependence, unspecified, uncomplicated